=== PATIENT | female | born 1945 | race Caucasian/White ===

== ENCOUNTER 2017-08-20 09:45 | Emergency (ER) | payer BC, MEDICARE ==
[2017-08-20] MEDS ORDERED: ACETAMINOPHEN 325 MG TABLET PO ONE (10:18)
[2017-08-20] MEDS ORDERED: OXYCODONE HCL IR 5 MG TABLET PO ONE (10:24)
--- NOTE | 2017-08-20 10:36 | RADIOLOGY REPORT (SQ) ---
EXAM DESCRIPTION: SHOULDER LEFT 2 OR MORE VIEWS COMPLETED DATE/TIME: 08/20/2017 10:20 am REASON FOR STUDY: fall, pain COMPARISON: None. NUMBER OF VIEWS: Two views. TECHNIQUE: Internal rotation and Y view images acquired of the left shoulder. LIMITATIONS: None. FINDINGS: MINERALIZATION: Normal. BONES: There is a fracture of the humeral head involving the greater tuberosity. Cannot entirely exc lude oblique fracture through the humeral neck. JOINTS: No dislocation. VISUALIZED LUNGS AND RIBS: No pneumothorax. No rib fracture. SOFT TISSUES: No radiopaque foreign body. OTHER: No other significant finding. IMPRESSION: Humeral fracture as described. TECHNICAL DOCUMENTATION: JOB ID: [id number] [employer]- All Rights Reserved
--- NOTE | 2017-08-20 10:58 | RADIOLOGY REPORT (SQ) ---
EXAM DESCRIPTION: CT HEAD WITHOUT COMPLETED DATE/TIME: 08/20/2017 10:37 am REASON FOR STUDY: fall, on blood thinner, hit head COMPARISON: None. TECHNIQUE: Axial images acquired through the brain without intravenous contrast. Images reviewed wi th bone, brain and subdural windows. Images stored on PACS. All CT scanners at this facility use dose modulation, iterative reconstruction, and/or weight based d osing when appropriate to reduce radiation dose to as low as reasonably achievable (ALARA). [facility]: Dose Right [facility]: CareDose [facility]: Dose Right [facility]: Teradose 4D [facility]: Smart [employer] Media RADIATION DOSE: CT Rad equipment meets quality standard of care and radiation dose reduction techniq ues were employed. CTDIvol: 49.0 mGy. DLP: 881 mGy-cm. mGy. LIMITATIONS: None. FINDINGS: VENTRICLES: Prominent. CEREBRUM: No masses. No hemorrhage. No midline shift. Areas of low density in the white matter mos t likely due to chronic micro-vascular ischemic change. No evidence for acute infarction. CEREBELLUM: No masses. No hemorrhage. No alteration of density. No evidence for acute infarction. EXTRAAXIAL SPACES: Mild age-related involutional change. No fluid collections. No masses. ORBITS AND GLOBE: No intra- or extraconal masses. Normal contour of globe without masses. CALVARIUM: No fracture. PARANASAL SINUSES: No fluid or mucosal thickening. SOFT TISSUES: No mass or hematoma. OTHER: No other significant finding. IMPRESSION: MILD CHRONIC CHANGES OF ATROPHY AND MICROVASCULAR ISCHEMIA. NO ACUTE PROCESS. EVIDENCE OF ACUTE STROKE: NO. TECHNICAL DOCUMENTATION: JOB ID: [id number] Quality ID # [id number]: Final reports with documentation of one or more dose reduction techniques (e.g., Au tomated exposure control, adjustment of the mA and/or kV according to patient size, use of iterative reconstruction technique) 2010 [employer]- All Rights Reserved
--- NOTE | 2017-08-20 11:44 | RADIOLOGY REPORT (SQ) ---
EXAM DESCRIPTION: FEMUR LEFT COMPLETED DATE/TIME: 08/20/2017 11:19 am REASON FOR STUDY: fall, pain COMPARISON: None. NUMBER OF VIEWS: Two views. TECHNIQUE: Two radiographic images acquired of the left femur to include hip and knee in at least on e projection. LIMITATIONS: None. FINDINGS: MINERALIZATION: Normal. BONES: No acute fracture. No worrisome bone lesions. SOFT TISSUES: No obvious swelling or foreign body. OTHER: No other significant finding. IMPRESSION: NEGATIVE STUDY OF THE LEFT FEMUR. NO RADIOGRAPHIC EVIDENCE OF ACUTE INJURY. TECHNICAL DOCUMENTATION: JOB ID: [id number] [employer]- All Rights Reserved
--- NOTE | 2017-08-20 11:59 | RADIOLOGY REPORT (SQ) ---
EXAM DESCRIPTION: HIP LEFT AP/LATERAL COMPLETED DATE/TIME: 08/20/2017 11:19 am REASON FOR STUDY: fall, pain COMPARISON: None. NUMBER OF VIEWS: Two views. TECHNIQUE: AP pelvis and additional frog-leg view of the left hip. LIMITATIONS: None. FINDINGS: MINERALIZATION: Normal. LEFT HIP: No fracture or dislocation. No worrisome bone lesions. RIGHT HIP: No fracture or dislocation. No worrisome bone lesions. PUBIS AND ISCHIUM: No fracture. PELVIS: No fracture. SACRUM: No fracture or dislocation. No worrisome bone lesions. LOWER LUMBAR SPINE: Lower lumbar degenerative changes are present. SOFT TISSUES: No findings. OTHER: No other significant finding. IMPRESSION: Negative study of the left hip pelvis. Lower lumbar degenerative changes are present. TECHNICAL DOCUMENTATION: JOB ID: [id number] [employer]- All Rights Reserved
--- NOTE | 2017-08-20 12:06 | ER Document Report ---
ED Fall - General Chief Complaint: Fall Stated Complaint: FALL LEFT SHOULDER PAIN Time Seen by Provider: 08/20/17 09:59 Mode of Arrival: Medic Information source: Patient Notes: Patient is a 71-year-old female who presents to the ER today for left shoulder pain after she tripped while taking her dog to the [employer]. Patient states that she just got "caught up" in the dog's leash. She has rheumatoid arthritis and states that she always has pain but she is having increased pain since the fall to her left shoulder. Patient did hit her head and is on blood thinners. She complains of a small cut to the side of the left eye. She denies pain anywhere else, loss of consciousness, nausea or vomiting. Family in the room state that she is acting normally. She denies any numbness or tingling anywhere including to the left arm or hand. TRAVEL OUTSIDE OF THE [place] IN LAST 30 DAYS: No - Related data Allergies/Adverse Reactions: Sulfa (Sulfonamide Antibiotics) Allergy (Verified 08/20/17 10:10) does not recall IVP DYE Allergy (Mild, Uncoded 08/20/17 10:10) Hives Past Medical History - General Information source: Patient - Social History Smoking Status: Never Smoker Chew tobacco use (# tins/day): No Frequency of alcohol use: None Drug Abuse: None Family History: Reviewed & Not Pertinent Patient has suicidal ideation: No Patient has homicidal ideation: No - Past Medical History Cardiac Medical History: Reports: Hx Hypertension - medicated Denies: Hx Heart Attack Pulmonary Medical History: Denies: Hx Asthma Neurological Medical History: Denies: Hx Cerebrovascular Accident, Hx Seizures Renal/ Medical History: Denies: Hx Peritoneal Dialysis GI Medical History: Denies: Hx Hepatitis, Hx Hiatal Hernia, Hx Ulcer Infectious Medical History: Denies: Hx Hepatitis Past Surgical History: Denies: Hx Hysterectomy, Hx Mastectomy, Hx Open Heart Surgery, Hx Pacemaker Review of Systems - Review of Systems Constitutional: No symptoms reported EENT: No symptoms reported Cardiovascular: No symptoms reported Respiratory: No symptoms reported Gastrointestinal: No symptoms reported Genitourinary: No symptoms reported Female Genitourinary: No symptoms reported Musculoskeletal: See HPI Skin: See HPI Hematologic/Lymphatic: No symptoms reported Neurological/Psychological: No symptoms reported Physical Exam - Vital signs Vitals: Temp Pulse Resp BP Pulse Ox 97.3 F 60 16 145/79 H 100 08/20/17 09:49 08/20/17 09:49 08/20/17 09:49 08/20/17 09:49 08/20/17 09:49 - Notes Notes: PHYSICAL EXAMINATION: GENERAL: Patient wearing a makeshift sling to the left arm, otherwise well- appearing, in no acute distress. HEAD: Atraumatic, normocephalic. EYES: Pupils equal round and reactive to light, extraocular movements intact, sclera anicteric, conjunctiva are normal. NECK: Normal range of motion, supple without lymphadenopathy LUNGS: CTAB and equal. No wheezes rales or rhonchi. HEART: Regular rate and rhythm without murmurs ABDOMEN: Soft, no tenderness. No guarding, no rebound BACK: no vertebral tenderness, normal ROM GI/: no CVA tenderness EXTREMITIES: Tender to lateral left hip and femur, tender to left shoulder and left humerus proximally, no pitting edema. No cyanosis. NEUROLOGICAL: Cranial nerves grossly intact. Normal sensory/motor exams. PSYCH: Normal mood, normal affect. SKIN: Warm, Dry, normal turgor, small, less than 1 cm laceration lateral to the left eye, no bleeding, superficial, does not open Course - Re-evaluation Re-evalutation: 08/20/17 17:53 There is a fracture of the humeral head involving the greater tuberosity. No acute pathology found on CT of the head, hip x-ray or left femur x-ray. Patient feels better after pain medication here. Patient be placed in shoulder immobilizer and was given orthopedic follow-up although she states that she will call her rheumatoid arthritis doctor for orthopedic follow-up. - Vital Signs Vital signs: Temp Pulse Resp BP Pulse Ox 97.7 F 56 L 16 134/73 H 100 08/20/17 12:41 08/20/17 12:41 08/20/17 12:41 08/20/17 12:41 08/20/17 12:41 Discharge - Discharge Clinical Impression: Fall Qualifiers: Encounter type: initial encounter Qualified Code(s): W19.XXXA - Unspecified fall, initial encounter Fracture of humeral head Qualifiers: Encounter type: initial encounter Fracture type: closed Laterality: left Qualified Code(s): S42.292A - Other displaced fracture of upper end of left humerus, initial encounter for closed fracture Condition: Stable Disposition: HOME, SELF-CARE Additional Instructions: Return immediately for any new or worsening symptoms. Follow up with orthopedic doctor, call tomorrow to make followup appointment. Prescriptions: Oxycodone HCl/Acetaminophen [Percocet 5-325 mg Tablet] 1 tab PO Q4 PRN #15 tab PRN Reason: Referrals: LETICIA CASTLE MD [ACTIVE STAFF] - Follow up as needed
[2017-08-20 12:51] VITALS: BP 134/73
== END 2017-08-20 12:51 | disposition home or self-care (01) ==
LOC: ER 09:45
DX: S42.292A Other displaced fracture of upper end of left humerus, initial encounter for closed fracture (principal); W01.0XXA Fall on same level from slipping, tripping and stumbling without subsequent striking against object, initial encounter; I10 Essential (primary) hypertension; Z88.2 Allergy status to sulfonamides; Z91.041 Radiographic dye allergy status
CPT/HCPCS: 99284; 73552; 73502; 73030; 70450; L3650

== ENCOUNTER 2020-04-24 09:11 | Inpatient (IN) | payer MEDICARE, BC ==
[2020-04-24] MEDS ORDERED: ONDANSETRON HCL INJ/PF 4 MG/2 ML SDV IV ONE (09:31)
[2020-04-24 09:44] LABS: ABSOLUTE BASOPHILS # (AUTO) 0.1 10^3/uL (0.0-0.2); ABSOLUTE EOSINOPHILS # (AUTO) 0.3 10^3/uL (0.0-0.6); ABSOLUTE LYMPHOCYTES (AUTO) 1.2 10^3/uL (0.5-4.7); ABSOLUTE MONOCYTES (AUTO) 0.4 10^3/uL (0.1-1.4); ABSOLUTE NEUT (AUTO) 4.6 10^3/uL (1.7-8.2); BASOPHILS % (AUTO) 0.9 % (0-2); EOSINOPHILS % (AUTO) 4.4 % (0-6); HEMATOCRIT 40.7 % (36.0-47.0); HEMOGLOBIN 12.6 g/dL (12.0-15.5); LYMPHOCYTES % (AUTO) 18.6 % (13-45); MEAN CORPUSCULAR HEMOGLOBIN 28.6 pg (27.0-33.4); MEAN CORPUSCULAR VOLUME 92 fl (80-97); MONOCYTES % (AUTO) 6.5 % (3-13); PLATELET COUNT 359 10^3/uL (150-450); RED CELL DISTRIBUTION WIDTH 18.5 % (11.5-14.0); SEGMENTED NEUTROPHILS % (AUTO) 69.6 % (42-78); TOTAL CELLS COUNTED % (AUTO) 100 %; WHITE BLOOD COUNT 6.7 10^3/uL (4.0-10.5)
--- NOTE | 2020-04-24 09:53 | ER Document Report ---
Entered by MYLES CRISTOBAL SCRIBE 04/24/20926 Acting as scribe for:ELMER EVANS MD ED Respiratory Problem - General Chief Complaint: Breathing Difficulty Stated Complaint: DIFFICULTY BREATHING Time Seen by Provider: 04/24/20 09:17 Primary Care Provider: ELIZABETH MARC MD [NO LOCAL MD] - Follow up as needed Information source: Patient Notes: This 74 year old female patient presents to the emergency department today with complaints of difficulty breathing. She reports that [place] she had "3 instances" of shortness of breath that she attributed to "the thin atmosphere" but it became much worse last night. She reports that she tried two puffs of her symbicort which did nothing for her shortness of breath. She does not have an albuterol inhaler at home. She complaints of nausea which is chronic. She denies any cough or fevers. TRAVEL OUTSIDE OF THE [place] IN LAST 30 DAYS: No - Related Data Allergies/Adverse Reactions: Sulfa (Sulfonamide Antibiotics) Allergy (Verified 04/24/20 09:54) does not recall IVP DYE Allergy (Mild, Uncoded 04/24/20 09:54) Hives Past Medical History - General Information source: Patient - Social History Smoking Status: Never Smoker Cigarette use (# per day): No Frequency of alcohol use: None Drug Abuse: None Family History: Reviewed & Not Pertinent - Past Medical History Cardiac Medical History: Reports: Hx Atrial Fibrillation, Hx Hypertension - medicated Musculoskeletal Medical History: Reports Hx Arthritis - RA Past Surgical History: Reports: Hx Orthopedic Surgery - Shoulder Sx, Foot Sx Review of Systems - Review of Systems Constitutional: denies: Fever EENT: No symptoms reported Cardiovascular: No symptoms reported Respiratory: See HPI, Short of breath. denies: Cough Gastrointestinal: See HPI, Nausea - chronic Genitourinary: No symptoms reported Female Genitourinary: No symptoms reported Musculoskeletal: See HPI, Joint pain - chronic from RA Skin: No symptoms reported Hematologic/Lymphatic: No symptoms reported Neurological/Psychological: No symptoms reported -: Yes All other systems reviewed and negative Physical Exam - Vital signs Vitals: Resp BP Pulse Ox 25 H 152/87 H 100 04/24/20 09:15 04/24/20 09:15 04/24/20 09:15 - Notes Notes: Physical Exam: General: Alert, appears well. HEENT: Normocephalic. Atraumatic. PERRL. Extraocular movements intact. Oropharynx clear. Neck: Supple. Non-tender. Respiratory: Mild respiratory distress, initially on 15 L on nonrebreather saturating 100%, this was turned down to 2 L and she is still saturating 100%. Clear and equal breath sounds bilaterally. Cardiovascular: Regular rate and rhythm. Abdominal: Normal Inspection. Non-tender. No distension. Normal Bowel Sounds. Back: No gross abnormalities. Extremities: Moves all four extremities. Upper extremities: Ulnar deviation of fingers Lower extremities: Ulnar deviation of toes Neurological: Normal cognition. AAOx4. Normal speech. Psychological: Normal affect. Normal Mood. Skin: Warm. Dry. Normal color. Course - Re-evaluation Re-evalutation: 04/24/20 11:07 At this time the patient is on 2 L nasal cannula with pulse ox 98%. She is s miling states she feels much better. When asked her if the breathing treatment made her feel better she said she did not think so and asked her what did make her feel better she said just getting into the emergency room and the oxygen. She actually had been on a nonrebreather in route by EMS according to the nurse, and was left on nonrebreather at at least 15 L. This was turned down to 2 L and she was still saturating well so I asked the nurse to switch her to nasal cannula. She took her completely off of oxygen to get the blood gas which showed a PCO2 over 70 and a PO2 over 130 so she had been supersaturated on oxygen causing her to retain carbon dioxide. Hopefully this is remedying itself now that she is down to only 2 L nasal cannula. 04/24/20 15:34 A repeat blood gas on 2 L nasal cannula showed a PCO2 of 69 with a PO2 of 99. The patient was sleeping. The oxygen was turned off and her oxygen saturations dropped to 85%. She was then placed on 1 L nasal cannula and her oxygen saturation went up to 98%. - Vital Signs Vital signs: Temp Pulse Resp BP Pulse Ox 98.4 F 88 18 120/55 L 99 04/24/20 14:31 04/24/20 09:53 04/24/20 14:31 04/24/20 14:31 04/24/20 14:31 - Laboratory Result Diagrams: 04/24/20 09:30 04/24/20 11:20 Laboratory results interpreted by me: 04/24/20 04/24/20 04/24/20 09:30 09:46 11:20 MCHC 31.0 L RDW 18.5 H Carbonic Acid 2.19 H ABG pH 7.30 L ABG pCO2 72.9 H* ABG pO2 134.3 H ABG HCO3 35.1 H ABG Total CO2 37.3 H ABG O2 Saturation 98.3 H Potassium 3.5 L Carbon Dioxide 35 H AST 54 H Creatine Kinase 398 H Total Protein 5.5 L Albumin 3.0 L Urine Protein 04/24/20 04/24/20 12:15 14:05 MCHC RDW Carbonic Acid 2.08 H ABG pH 7.31 L ABG pCO2 69.0 H ABG pO2 ABG HCO3 33.6 H ABG Total CO2 35.7 H ABG O2 Saturation Potassium Carbon Dioxide AST Creatine Kinase Total Protein Albumin Urine Protein >=500 H - Diagnostic Test Radiology reviewed: Image reviewed, Reports reviewed - chest x-ray shows cardiomegaly, there are no comparisons. - EKG Interpretation by Me EKG shows normal: [place], Intervals, QRS Complexes, ST-T Waves Rate: Normal - 91 Rhythm: A.Fib [place]/QRS: Left axis deviation, IVCD When compared to previous EKG there are: Previous EKG unavailable Critical Care Note - Critical Care Note Total time excluding time spent on procedures (mins): 35 Comments: At least 35 minutes spent evaluating the patient and repeatedly going back to check on her as we give IV fluids, and try to sort out her hypoxia and hypercarbia issues. Time spent discussing the patient with the hospitalist service. Time spent reviewing past medical records and going through her large box full of medications. Discharge - Discharge Clinical Impression: Shortness of breath, CO2 retention, Chronic atrial fibrillation, Hypoxia, Dehydration Hypotension Qualifiers: Hypotension type: unspecified hypotension type Qualified Code(s): I95.9 - Hypotension, unspecified Proteinuria Qualifiers: Proteinuria type: unspecified Qualified Code(s): R80.9 - Proteinuria, unspecified Rheumatoid arthritis Qualifiers: Rheumatoid arthritis location: multiple sites Rheumatoid factor presence: unspecified presence Qualified Code(s): M06.9 - Rheumatoid arthritis, unspecified Condition: Good Disposition: ADMITTED INPATIENT Admitting Provider: Thierno (Hospitalist) Unit Admitted: Telemetry Referrals: ELIZABETH MARC MD [NO LOCAL MD] - Follow up as needed I personally performed the services described in the documentation, reviewed and edited the documentation which was dictated to the scribe in my presence, and it accurately records my words and actions.
--- NOTE | 2020-04-24 10:01 | RADIOLOGY REPORT (SQ) ---
EXAM DESCRIPTION: CHEST SINGLE VIEW IMAGES COMPLETED DATE/TIME: 04/24/2020 9:43 am REASON FOR STUDY: SOB COMPARISON: None. NUMBER OF VIEWS: One view. TECHNIQUE: Single frontal radiographic view of the chest acquired. LIMITATIONS: Overlapping breast tissue. FINDINGS: LUNGS AND PLEURA: Nonspecific elevation right diaphragm. No infiltrate. MEDIASTINUM AND HILAR STRUCTURES: Hiatal hernia. HEART AND VASCULAR STRUCTURES: Heart enlarged without failure. Normal vasculature. BONES: No acute findings. HARDWARE: Left shoulder arthroplasty. OTHER: No other significant finding. IMPRESSION: Cardiomegaly. No acute findings. TECHNICAL DOCUMENTATION: JOB ID: [id number] 2010 [employer]- All Rights Reserved Reading location - IP/workstation name: [email or web address]
[2020-04-24 10:17] LABS: ARTERIAL BLOOD BASE EXCESS 6.5 mmol/L; ARTERIAL BLOOD H2CO3 2.19 mmol/L (1.05-1.35); ARTERIAL BLOOD HCO3 35.1 mmol/L (20-24); ARTERIAL BLOOD O2 SATURATION 98.3 % (94-98); ARTERIAL BLOOD PO2 134.3 mmHg (80-100); ARTERIAL BLOOD TOTAL CO2 37.3 mmol/L (21-25)
[2020-04-24 10:19] LABS: ARTERIAL BLOOD FIO2 ROOM AIR
[2020-04-24 10:21] LABS: ARTERIAL BLOOD PCO2 72.9 mmHg (35-45)
[2020-04-24] MEDS ORDERED: IPRATROPIUM/ALBUTEROL 0.5-2.5 MG/3 ML AMPUL NEB ONE (10:21)
[2020-04-24 12:04] LABS: ALKALINE PHOSPHATASE 78 U/L (38-126); ASPARTATE AMINO TRANSFERASE 54 U/L (14-36); BILIRUBIN,TOTAL 0.3 mg/dL (0.2-1.3); BLOOD UREA NITROGEN 18 mg/dL (7-20); CALCIUM 9.2 mg/dL (8.4-10.2); CARBON DIOXIDE 35 mmol/L (22-30); CREATINE KINASE 398 U/L (30-135); GLUCOSE 106 mg/dL (75-110); POTASSIUM 3.5 mmol/L (3.6-5.0); TOTAL PROTEIN 5.5 g/dL (6.3-8.2)
[2020-04-24 12:11] LABS: ANION GAP 5 (5-19); CHLORIDE 98 mmol/L (98-107)
[2020-04-24] MEDS ORDERED: NORMAL SALINE 1000 ML 1,000 ML IV ONE ×2 (12:30→15:22)
[2020-04-24 12:54] LABS: APPEARANCE,URINE SLIGHTLY-CLOUDY; BILIRUBIN,URINE NEGATIVE (NEGATIVE); COLOR,URINE YELLOW; GLUCOSE, URINE NEGATIVE (NEGATIVE); KETONES,URINE NEGATIVE (NEGATIVE); LEUKOCYTE ESTERASE,URINE NEGATIVE (NEGATIVE); NITRITE,URINE NEGATIVE (NEGATIVE); PROTEIN,URINE >=500 mg/dL (NEGATIVE); URINE SPECIFIC GRAVITY 1.024; UROBILINOGEN,URINE NEGATIVE mg/dL (<2.0)
[2020-04-24 14:55] LABS: ARTERIAL BLOOD BASE EXCESS 4.9 mmol/L; ARTERIAL BLOOD H2CO3 2.08 mmol/L (1.05-1.35); ARTERIAL BLOOD HCO3 33.6 mmol/L (20-24); ARTERIAL BLOOD O2 SATURATION 96.7 % (94-98); ARTERIAL BLOOD PH 7.31 (7.35-7.45); ARTERIAL BLOOD PO2 99.6 mmHg (80-100); ARTERIAL BLOOD TOTAL CO2 35.7 mmol/L (21-25)
[2020-04-24 14:56] LABS: ARTERIAL BLOOD FIO2 2L
--- NOTE | 2020-04-24 15:04 | EKG REPORT ---
SEVERITY:- ABNORMAL ECG - SINUS RHYTHM LVH WITH IVCD, LAD AND SECONDARY REPOL ABNRM PROBABLE INFERIOR INFARCT, AGE INDETERMINATE PAC : Confirmed by: Chad Ramirez MD 24-Apr-2020 15:03:55
[2020-04-24] MEDS ORDERED: ONDANSETRON HCL INJ/PF 4 MG/2 ML SDV IV PRN (17:14)
[2020-04-24] MEDS ORDERED: LEVALBUTEROL HCL NEB 1.25 MG/3 ML AMPUL NEB PRN (17:14)
[2020-04-24] MEDS ORDERED: NORMAL SALINE 1000 ML 1,000 ML IV PRN (17:14)
[2020-04-24] MEDS ORDERED: MAG HYDROX/AL HYDROX/SIMETH SUSP 30 ML UDCUP PO PRN (17:14)
--- NOTE | 2020-04-24 17:45 | PDOC H&P ---
History of Present Illness Admission Date/PCP: 04/24/20 15:38 SIMONE MEDELLIN DO Patient complains of: palpitations and dyspnea History of Present Illness: ROXANA GOEL is a 74 year old female with a past medical history significant for atrial fibrillation status post cardiac ablation (per patient, found to be in normal sinus rhythm at her cardiology visit just 2 weeks ago), remote esophageal cancer with esophagectomy, pulmonary embolus, hypertension, hyperlipidemia, and rheumatoid arthritis who presented to the emergency department today with a sudden onset of dyspnea. EMS responded and reported that she was dusky in appearance with profound hypoxia (uncertain of initial SPO2); placed on nonrebreather and transported to the emergency department. In the ED, patient was found to be tachypneic with SPO2 100% on nonrebreather; supplemental oxygen was slowly titrated off and she was able to maintain oxygen saturations in the high 80s to low 90s without Respiratory support. Further evaluation found an unremarkable CBC, ABG significant for respiratory acidosis with hypercapnia, chemistry with mild hypokalemia, elevated bicarb, and an inde terminate troponin of 0.048. Urine suggested dehydration and also noted to have proteinuria. EKG with significant for cardiomegaly but without acute findings. EKG shows atrial fibrillation. She was provided IV fluid boluses due to hypotension nebulizer treatment x1 due to continued report of dyspnea, and referred to the hospitalist service for admission and management of the above-stated findings. Past Medical History Cardiac Medical History: Reports: Atrial Fibrillation, Hyperlipidema, Hypertension Denies: Congestive Heart Failure, Coronary Artery Disease, Myocardial Infarction Pulmonary Medical History: Reports: Chronic Obstructive Pulmonary Disease (COPD) - Denies formal diagnosis, however, prescribed Breo and Symbicort Denies: Asthma EENT Medical History: Reports: None Neurological Medical History: Denies: Seizures Endocrine Medical History: Reports: None Renal/ Medical History: Reports: None Malignancy Medical History: Reports: Other - remote esophageal cancer GI Medical History: Reports: Gastroesophageal Reflux Disease Denies: Hepatitis, Hiatal Hernia Musculoskeltal Medical History: Reports: Arthritis - RA Psychiatric Medical History: Reports: Depression Traumatic Medical History: Reports: None Hematology: Denies: Anemia, Sickle Cell Disease Infectious Medical History: Reports: None Past Surgical History Past Surgical History: Reports: Orthopedic Surgery - Shoulder Sx, Foot Sx, Other - esophagectomy Denies: Amputation, Hysterectomy, Mastectomy, Pacemaker Social History Information Source: Patient Lives with: Family Smoking Status: Never Smoker Electronic Cigarette use?: No Frequency of Alcohol Use: None Hx Recreational Drug Use: No Drugs: None Hx Prescription Drug Abuse: No - Advance Directive Resuscitation Status: Full Code Family History Family History: Reviewed & Not Pertinent, DM, Hyperlipidemia, Hypertension, Thyroid Disfunction Parental Family History Reviewed: Yes Children Family History Reviewed: Yes Sibling(s) Family History Reviewed.: Yes Medication/Allergy Home Medications: Celecoxib [Celebrex] 400 mg PO DAILY 12/15/13 Cetirizine HCl [Zyrtec] 10 mg PO DAILY 12/15/13 Cholecalciferol (Vitamin D3) [Vitamin D3 5000 unit Capsule] 50,000 unit PO [id number] 12/15/13 Esomeprazole Magnesium [Nexium] 40 mg PO DAILY 12/15/13 Hydroxychloroquine Sulfate [Plaquenil 200 mg Tablet] 200 mg PO DAILY 12/15/13 Potassium Chloride [Klor-Con] 20 meq PO DAILY 12/15/13 Prednisone 5 mg PO BID 12/15/13 Sucralfate [Carafate 1 gm Tablet] 1 gm PO ACHS 12/15/13 Budesonide/Formoterol Fumarate [Symbicort HFA 160-4.5 mcg Inhaler 6 gm] 1 puff IN Q12 04/24/20 Colestipol HCl [Colestid 1 gm Tablet] 1 gm PO DAILY 04/24/20 Duloxetine HCl [Cymbalta 30 mg Capsule.dr] 30 mg PO DAILY 04/24/20 Folic Acid [Folvite 1 mg Tablet] 1 mg PO BID 04/24/20 Magnesium Oxide [Mag-Ox 400 mg Tablet] 400 mg PO QHS 04/24/20 Ondansetron [Zofran Odt 4 mg Tablet] 4 mg PO Q6HP PRN 04/24/20 Vits96/Iron Fum/Folic [ Tablet] 1 tab PO DAILY 04/24/20 Rivaroxaban [Xarelto] 20 mg PO DAILY 04/24/20 Sotalol HCl [Betapace 80 mg Tablet] 80 mg PO BID 04/24/20 Telmisartan/Hydrochlorothiazid [Telmisartan-Hctz 80-12.5 mg Tb] 1 tab PO DAILY 04/24/20 Venlafaxine HCl ER [Effexor Xr 75 mg Cap.sr] 75 mg PO DAILY 04/24/20 Allergies/Adverse Reactions: Sulfa (Sulfonamide Antibiotics) Allergy (Verified 04/24/20 09:54) does not recall IVP DYE Allergy (Mild, Uncoded 04/24/20 09:54) Hives Review of Systems Constitutional: ABSENT: chills, fever(s), headache(s), weight gain, weight loss Eyes: ABSENT: visual disturbances Ears: ABSENT: hearing changes Cardiovascular: PRESENT: dyspnea on exertion, palpitations. ABSENT: chest pain, edema, orthropnea Respiratory: ABSENT: cough, hemoptysis Gastrointestinal: ABSENT: abdominal pain, constipation, diarrhea, hematemesis, hematochezia, nausea, vomiting Genitourinary: ABSENT: dysuria, hematuria Musculoskeletal: ABSENT: joint swelling Integumentary: ABSENT: rash, wounds Neurological: ABSENT: abnormal gait, abnormal speech, confusion, dizziness, focal weakness, syncope Psychiatric: ABSENT: anxiety, depression, homidical ideation, suicidal ideation Endocrine: ABSENT: cold intolerance, heat intolerance, polydipsia, polyuria Hematologic/Lymphatic: ABSENT: easy bleeding, easy bruising Physical Exam Vital Signs: Temp Pulse Resp BP Pulse Ox 98.4 F 88 20 110/48 L 97 04/24/20 16:01 04/24/20 09:53 04/24/20 16:30 04/24/20 16:30 04/24/20 15:30 Intake & Output 04/23/20 04/24/20 04/25/20 06:59 06:59 06:59 Intake Total 1999 Balance 1999 Weight 76.6 kg General appearance: PRESENT: no acute distress, cooperative, well-developed, well-nourished - overweight Head exam: PRESENT: atraumatic, normocephalic Eye exam: PRESENT: conjunctiva pink, EOMI, PERRLA. ABSENT: scleral icterus Mouth exam: PRESENT: moist, tongue midline Respiratory exam: PRESENT: clear to auscultation colleen, symmetrical, unlabored, other - room air. ABSENT: rales, rhonchi, wheezes Cardiovascular exam: PRESENT: irregular rhythm, +S1, +S2. ABSENT: diastolic murmur, rubs, systolic murmur Pulses: PRESENT: normal dorsalis pedis pul Vascular exam: PRESENT: normal capillary refill GI/Abdominal exam: PRESENT: normal bowel sounds, soft. ABSENT: distended, guarding, mass, organolmegaly, rebound, tenderness Rectal exam: PRESENT: deferred Extremities exam: PRESENT: full ROM. ABSENT: calf tenderness, clubbing, pedal edema Neurological exam: PRESENT: alert, awake, oriented to person, oriented to place, oriented to time, oriented to situation, CN II-XII grossly intact. ABSENT: motor sensory deficit Psychiatric exam: PRESENT: appropriate affect, normal mood. ABSENT: homicidal ideation, suicidal ideation Skin exam: PRESENT: dry, intact, warm. ABSENT: cyanosis, rash Results Laboratory Results: 04/24/20 09:30 04/24/20 11:20 04/24/20 04/24/20 04/24/20 09:30 09:30 09:46 WBC 6.7 RBC 4.40 Hgb 12.6 Hct 40.7 MCV 92 MCH 28.6 MCHC 31.0 L RDW 18.5 H Plt Count 359 Seg Neutrophils % 69.6 Carbonic Acid 2.19 H HCO3/H2CO3 Ratio 16:1 ABG pH 7.30 L ABG pCO2 72.9 H* ABG pO2 134.3 H ABG HCO3 35.1 H ABG O2 Saturation 98.3 H ABG Base Excess 6.5 FiO2 ROOM AIR Sodium Cancelled Potassium Cancelled Chloride Cancelled Carbon Dioxide Cancelled Anion Gap Cancelled BUN Cancelled Creatinine Cancelled Est GFR ( Amer) Cancelled Est GFR (Non-Af Amer) Cancelled Glucose Cancelled Calcium Cancelled Total Bilirubin Cancelled AST Cancelled Alkaline Phosphatase Cancelled Total Protein Cancelled Albumin Cancelled Urine Color Urine Appearance Urine pH Ur Specific [place] Urine Protein Urine Glucose (UA) Urine Ketones Urine Blood Urine Nitrite Ur Leukocyte Esterase Urine WBC (Auto) Urine RBC (Auto) 04/24/20 04/24/20 04/24/20 11:20 12:15 13:20 WBC RBC Hgb Hct MCV MCH MCHC RDW Plt Count Seg Neutrophils % Carbonic Acid Cancelled HCO3/H2CO3 Ratio Cancelled ABG pH Cancelled ABG pCO2 Cancelled ABG pO2 Cancelled ABG HCO3 Cancelled ABG O2 Saturation Cancelled ABG Base Excess Cancelled FiO2 Cancelled Sodium 138.1 Potassium 3.5 L Chloride 98 Carbon Dioxide 35 H Anion Gap 5 BUN 18 Creatinine 0.92 Est GFR ( Amer) > 60 Est GFR (Non-Af Amer) Glucose 106 Calcium 9.2 Total Bilirubin 0.3 AST 54 H Alkaline Phosphatase 78 Total Protein 5.5 L Albumin 3.0 L Urine Color YELLOW Urine Appearance SLIGHTLY-CLOUDY Urine pH 6.0 Ur Specific [place] 1.024 Urine Protein >=500 H Urine Glucose (UA) NEGATIVE Urine Ketones NEGATIVE Urine Blood NEGATIVE Urine Nitrite NEGATIVE Ur Leukocyte Esterase NEGATIVE Urine WBC (Auto) 16 Urine RBC (Auto) 7 04/24/20 14:05 WBC RBC Hgb Hct MCV MCH MCHC RDW Plt Count Seg Neutrophils % Carbonic Acid 2.08 H HCO3/H2CO3 Ratio 16:1 ABG pH 7.31 L ABG pCO2 69.0 H ABG pO2 99.6 ABG HCO3 33.6 H ABG O2 Saturation 96.7 ABG Base Excess 4.9 FiO2 2L Sodium Potassium Chloride Carbon Dioxide Anion Gap BUN Creatinine Est GFR ( Amer) Est GFR (Non-Af Amer) Glucose Calcium Total Bilirubin AST Alkaline Phosphatase Total Protein Albumin Urine Color Urine Appearance Urine pH Ur Specific [place] Urine Protein Urine Glucose (UA) Urine Ketones Urine Blood Urine Nitrite Ur Leukocyte Esterase Urine WBC (Auto) Urine RBC (Auto) 04/24/20 04/24/20 04/24/20 09:30 09:30 11:20 Creatine Kinase Cancelled Troponin I Cancelled 0.048 04/24/20 11:20 Creatine Kinase 398 H Troponin I Impressions: Chest X-Ray 04/24/20 09:27 IMPRESSION: Cardiomegaly. No acute findings. Assessment and Plan - Diagnosis (1) Atrial fibrillation Qualifiers: Atrial fibrillation type: persistent (not longstanding) Qualified Code(s): I48.19 - Other persistent atrial fibrillation; I48.1 - Persistent atrial fibrillation Is this a current diagnosis for this admission?: Yes Plan: Persistent atrial fibrillation. Patient is admitted to the medical floor on continuous cardiac telemetry. Continue Xarelto. Will increase Sotalol to 120 mg BID. Low threshold for cardiology consultation. EKG in the morning to check rhythm and QTc interval. (2) Acute respiratory failure with hypoxia and hypercapnia Is this a current diagnosis for this admission?: Yes Plan: Improved. Symptoms of dyspnea coincided with report of palpitations; I question if the patient is having episodes of a. fib RVR. ABG showed respiratory acidosis with hypercapnia. She denies formal diagnosis of COPD, however, previously prescribed Breo and Cymbalta. Chest x-ray is benign. She will be monitored on continuous cardiac telemetry. Resume Breo and Spiriva. As needed nebulizer treatments. Supplemental oxygen as needed to meet saturations greater than 89%. Continue home dose prednisone 5 mg twice daily; consider escalation if the patient develops wheezing or clear exacerbation of COPD. (3) Rheumatoid arthritis Qualifiers: Rheumatoid arthritis location: multiple sites Rheumatoid factor presence: unspecified presence Qualified Code(s): M06.9 - Rheumatoid arthritis, unspecified Is this a current diagnosis for this admission?: Yes Plan: Continue home dose Plaquenil, prednisone, Cymbalta, Celebrex. (4) GERD (gastroesophageal reflux disease) Is this a current diagnosis for this admission?: Yes Plan: Continue PPI and Carafate (5) Hypertension Is this a current diagnosis for this admission?: Yes Plan: Sotalol increased as above. Continue home dose telmisartan/hydrochlorothiazide. Cardiac diet. - Time Time Spent with patient: 35 or more minutes Medications reviewed and adjusted accordingly: Yes Anticipated Discharge Disposition: Home with Home Health Anticipated Discharge Timeframe: within 48 hours
[2020-04-24] MEDS: PREDNISONE 5 MG TABLET PO SCH (19:21)
[2020-04-24] MEDS: FOLIC ACID 1 MG TABLET PO SCH (19:21)
[2020-04-24] MEDS: SOTALOL HCL 80 MG TABLET PO SCH (21:31)
[2020-04-24] MEDS: MAGNESIUM OXIDE 400 MG TABLET PO SCH (21:31)
[2020-04-24] MEDS: RIVAROXABAN 10 MG TABLET PO SCH (21:31)
[2020-04-24] MEDS: SUCRALFATE 1 GM TABLET PO SCH (21:31)
[2020-04-24] MEDS ORDERED: (PENDING PHARMACY ID) (Budesonide/Formoterol Fumarate 1 PUFF) IN SCH (22:00)
[2020-04-24] MEDS: ACETAMINOPHEN 325 MG TABLET PO PRN (23:41)
[2020-04-25 06:07] LABS: HEMATOCRIT 32.7 % (36.0-47.0); HEMOGLOBIN 10.7 g/dL (12.0-15.5); MEAN CORPUSCULAR HEMOGLOBIN 29.5 pg (27.0-33.4); MEAN CORPUSCULAR HGB CONC 32.6 g/dL (32.0-36.0); MEAN CORPUSCULAR VOLUME 90 fl (80-97); PLATELET COUNT 256 10^3/uL (150-450); RED BLOOD COUNT 3.62 10^6/uL (3.72-5.28); RED CELL DISTRIBUTION WIDTH 18.7 % (11.5-14.0); WHITE BLOOD COUNT 8.9 10^3/uL (4.0-10.5)
[2020-04-25 06:23] LABS: BLOOD UREA NITROGEN 18 mg/dL (7-20); CALCIUM 8.8 mg/dL (8.4-10.2); CARBON DIOXIDE 30 mmol/L (22-30); CHLORIDE 103 mmol/L (98-107); GLUCOSE 96 mg/dL (75-110); PHOSPHORUS 3.5 mg/dL (2.5-4.5)
[2020-04-25 06:25] LABS: ANION GAP 5 (5-19)
[2020-04-25] MEDS: FOLIC ACID 1 MG TABLET PO SCH ×2 (09:40→17:40)
[2020-04-25] MEDS: POTASSIUM CHLORIDE 20 MEQ PACKET PO SCH (09:40)
[2020-04-25] MEDS: FLUTICASONE/VILANTEROL 200-25 MCG/DOSE IH SCH (09:41)
[2020-04-25] MEDS: LOSARTAN POTASSIUM 50 MG TABLET PO SCH (09:41)
[2020-04-25] MEDS: SUCRALFATE 1 GM TABLET PO SCH ×4 (09:41→21:19)
[2020-04-25] MEDS: CETIRIZINE 10 MG TABLET PO SCH (09:41)
[2020-04-25] MEDS: PRENATAL VITAMIN W DHA CAPSULE PO SCH (09:41)
[2020-04-25] MEDS: PANTOPRAZOLE SODIUM 40 MG TABLET.DR PO SCH (09:41)
[2020-04-25] MEDS: HYDROXYCHLOROQUINE SULFATE 200 MG TABLET PO SCH (09:42)
[2020-04-25] MEDS: SOTALOL HCL 80 MG TABLET PO SCH ×2 (09:42→21:18)
[2020-04-25] MEDS: CELECOXIB 200 MG CAPSULE PO SCH (09:42)
[2020-04-25] MEDS: COLESTIPOL HCL 1 GM TABLET PO SCH (09:43)
[2020-04-25] MEDS: DOCUSATE SODIUM 100 MG CAPSULE PO SCH ×2 (09:43→17:44)
[2020-04-25] MEDS: HYDROCHLOROTHIAZIDE 12.5 MG TABLET PO SCH (09:43)
[2020-04-25] MEDS: PREDNISONE 5 MG TABLET PO SCH ×2 (09:46→17:40)
[2020-04-25] MEDS ORDERED: DULOXETINE HCL 30 MG CAPSULE.DR PO SCH (10:00)
[2020-04-25] MEDS ORDERED: (PENDING PHARMACY ID) (Telmisartan/Hydrochlorothiazid [Telmisartan-Hctz 80-12.5 Mg Tb] 1 T PO SCH (10:00)
[2020-04-25] MEDS ORDERED: (PENDING PHARMACY ID) (Prenatal Vits96/Iron Fum/Folic [Prenatal Tablet] 1 TAB) PO SCH (10:00)
[2020-04-25] MEDS ORDERED: CELECOXIB 400 MG PO SCH (10:00)
--- NOTE | 2020-04-25 14:43 | PDOC PROGRESS REPORT ---
Subjective Progress Note for:: 04/25/20 Subjective:: Patient was seen on afternoon rounds. She is found resting in bed, comfortably, on room air. Continues to have intermittent palpitations but no further episodes of dyspnea, generalized weakness, or anxiety. Hopeful to discharge to home soon. She further denies fever, chest pain, orthopnea, cough, abdominal pain, nausea vomiting and diarrhea. No other questions or concerns at this time. No concerns per nursing. Reason For Visit: A. FIB, ACUTE RESPIRATORY FAILURE WITH HYPOXIA AND Physical Exam Vital Signs: Temp Pulse Resp BP Pulse Ox 98.0 F 72 12 146/84 H 92 04/25/20 07:54 04/25/20 13:32 04/25/20 13:32 04/25/20 07:54 04/25/20 13:32 Intake & Output 04/24/20 04/25/20 04/26/20 06:59 06:59 06:59 Intake Total 2000 Output Total 400 Balance 1600 Weight 76.6 kg General appearance: PRESENT: no acute distress, cooperative, well-developed, well-nourished, other - Overweight Head exam: PRESENT: atraumatic, normocephalic Eye exam: PRESENT: conjunctiva pink, EOMI, PERRLA. ABSENT: scleral icterus Mouth exam: PRESENT: moist, tongue midline Respiratory exam: PRESENT: clear to auscultation colleen, symmetrical, unlabored. ABSENT: rales, rhonchi, wheezes Cardiovascular exam: PRESENT: RRR, other - Currently NSR; intermittent PAF on telemetry. ABSENT: diastolic murmur, rubs, systolic murmur Pulses: PRESENT: normal dorsalis pedis pul Vascular exam: PRESENT: normal capillary refill Extremities exam: PRESENT: full ROM. ABSENT: calf tenderness, clubbing, pedal edema Neurological exam: PRESENT: alert, awake, oriented to person, oriented to place, oriented to time, oriented to situation, CN II-XII grossly intact. ABSENT: motor sensory deficit Psychiatric exam: PRESENT: appropriate affect, normal mood. ABSENT: homicidal ideation, suicidal ideation Skin exam: PRESENT: dry, intact, warm. ABSENT: cyanosis, rash Results Laboratory Results: 04/25/20 05:20 04/25/20 05:20 04/24/20 04/25/20 04/25/20 14:05 05:20 05:20 WBC 8.9 RBC 3.62 L Hgb 10.7 L Hct 32.7 L MCV 90 MCH 29.5 MCHC 32.6 RDW 18.7 H Plt Count 256 Carbonic Acid 2.08 H HCO3/H2CO3 Ratio 16:1 ABG pH 7.31 L ABG pCO2 69.0 H ABG pO2 99.6 ABG HCO3 33.6 H ABG O2 Saturation 96.7 ABG Base Excess 4.9 FiO2 2L Sodium 137.4 Potassium 4.0 Chloride 103 Carbon Dioxide 30 Anion Gap 5 BUN 18 Creatinine 0.78 Est GFR ( Amer) > 60 Glucose 96 Calcium 8.8 Phosphorus 3.5 Magnesium 2.0 TSH 04/25/20 05:20 WBC RBC Hgb Hct MCV MCH MCHC RDW Plt Count Carbonic Acid HCO3/H2CO3 Ratio ABG pH ABG pCO2 ABG pO2 ABG HCO3 ABG O2 Saturation ABG Base Excess FiO2 Sodium Potassium Chloride Carbon Dioxide Anion Gap BUN Creatinine Est GFR ( Amer) Glucose Calcium Phosphorus Magnesium TSH 1.99 04/24/20 04/24/20 04/24/20 09:30 09:30 11:20 Creatine Kinase Cancelled Troponin I Cancelled 0.048 04/24/20 11:20 Creatine Kinase 398 H Troponin I Impressions: Chest X-Ray 04/24/20 09:27 IMPRESSION: Cardiomegaly. No acute findings. Assessment and Plan - Diagnosis (1) Atrial fibrillation Qualifiers: Atrial fibrillation type: persistent (not longstanding) Qualified Code(s): I48.19 - Other persistent atrial fibrillation; I48.1 - Persistent atrial fibrillation Is this a current diagnosis for this admission?: Yes Plan: Persistent atrial fibrillation. Patient is admitted to the medical floor on continuous cardiac telemetry. Continue Xarelto. Continue increased Sotalol at 120 mg BID. As patient is continuing to have PAF with palpitations, will consult cardiology (2) Acute respiratory failure with hypoxia and hypercapnia Is this a current diagnosis for this admission?: Yes Plan: Resolved. Symptoms of dyspnea coincided with report of palpitations; I question if the patient is having episodes of a. fib RVR. ABG showed respiratory acidosis with hypercapnia. She denies formal diagnosis of COPD, however, previously prescribed Breo and Cymbalta. Chest x-ray is benign. She will be monitored on continuous cardiac telemetry. Resume Breo and Spiriva. As needed nebulizer treatments. Supplemental oxygen as needed to meet saturations greater than 89%. Continue home dose prednisone 5 mg twice daily; consider escalation if the patient develops wheezing or clear exacerbation of COPD. (3) Rheumatoid arthritis Qualifiers: Rheumatoid arthritis location: multiple sites Rheumatoid factor presence: unspecified presence Qualified Code(s): M06.9 - Rheumatoid arthritis, unspecified Is this a current diagnosis for this admission?: Yes Plan: Continue home dose Plaquenil, prednisone, Cymbalta, Celebrex. (4) GERD (gastroesophageal reflux disease) Is this a current diagnosis for this admission?: Yes Plan: Continue PPI and Carafate (5) Hypertension Is this a current diagnosis for this admission?: Yes Plan: Sotalol increased as above. Continue home dose telmisartan/hydrochlorothiazide. Cardiac diet. - Time Time Spent with patient: 25-34 minutes Medications reviewed and adjusted accordingly: Yes Anticipated Discharge Disposition: Home with Home Health Anticipated Discharge Timeframe: within 24 hours - pending cardiology evaluation/recommendations
--- NOTE | 2020-04-25 15:30 | EKG REPORT ---
SEVERITY:- ABNORMAL ECG - SINUS RHYTHM ATRIAL PREMATURE COMPLEX FIRST DEGREE AV BLOCK LEFT ANTERIOR FASCICULAR BLOCK PROBABLE LVH WITH SECONDARY REPOL ABNRM BORDERLINE PROLONGED QT INTERVAL : Confirmed by: Chad Ramirez MD 25-Apr-2020 15:29:27
--- NOTE | 2020-04-25 16:50 | PDOC CONSULTATION ---
Consultation Consult Date: 04/25/20 Provider Consulted: AYESHA CALLEJAS Consult reason:: Atrial fibrillation History of Present Illness Admission Date/PCP: 04/24/20 15:38 SIMONE MEDELLIN DO Patient complains of: Palpitations History of Present Illness: ROXANA GOEL is a 74 year old female With the following active problems 1. Paroxysmal atrial fibrillation 2. Carcinoma esophagus 3. Systemic anticoagulation-rivaroxaban 4. Rheumatoid arthritis 74-year-old lady with history of atrial fibrillation status post catheter ablation 4 to [address] Coreas. Patient has been maintained on rhythm control strategy with sotalol 80 mg twice daily together with systemic anticoagulation. She also reports esophageal cancer which was removed followed by significant bleeding and required surgery as an emergency. Patient reports symptoms suggestive of paroxysmal atrial fibrillation with palpitations. [place] and became quite tachypneic. Since admission to the hospital she is done much better. Telemetry has shown episodes of sinus rhythm together with episodes of atrial fibrillation. Patient appears to be symptomatic when she goes into atrial fibrillation. At the time of my evaluation the sotalol dose has been increased to 120 mg twice daily. Past Medical History Cardiac Medical History: Reports: Atrial Fibrillation, Hyperlipidema, Hypertension Denies: Congestive Heart Failure, Coronary Artery Disease, Myocardial Infarction Pulmonary Medical History: Reports: Chronic Obstructive Pulmonary Disease (COPD) - Denies formal diagnosis, however, prescribed Breo and Symbicort Denies: Asthma EENT Medical History: Reports: None Neurological Medical History: Denies: Seizures Endocrine Medical History: Reports: None Renal/ Medical History: Reports: None Malignancy Medical History: Reports: Other - remote esophageal cancer GI Medical History: Reports: Gastroesophageal Reflux Disease Denies: Hepatitis, Hiatal Hernia Musculoskeltal Medical History: Reports: Arthritis - RA Psychiatric Medical History: Reports: Depression Traumatic Medical History: Reports: None Hematology: Denies: Anemia, Sickle Cell Disease Infectious Medical History: Reports: None Past Surgical History Past Surgical History: Reports: Orthopedic Surgery - Shoulder Sx, Foot Sx, Other - esophagectomy Denies: Amputation, Hysterectomy, Mastectomy, Pacemaker Social History Lives with: Family Smoking Status: Never Smoker Electronic Cigarette use?: No Frequency of Alcohol Use: None Hx Recreational Drug Use: No Drugs: None Hx Prescription Drug Abuse: No - Advance Directive Resuscitation Status: Full Code Family History Family History: Reviewed & Not Pertinent, DM, Hyperlipidemia, Hypertension, Thyroid Disfunction Parental Family History Reviewed: Yes - No familial illnesses. Children Family History Reviewed: NA Sibling(s) Family History Reviewed.: NA Medication/Allergy Home Medications: Celecoxib [Celebrex] 400 mg PO DAILY 12/15/13 Cetirizine HCl [Zyrtec] 10 mg PO DAILY 12/15/13 Esomeprazole Magnesium [Nexium] 40 mg PO DAILY 12/15/13 Hydroxychloroquine Sulfate [Plaquenil 200 mg Tablet] 200 mg PO DAILY 12/15/13 Potassium Chloride [Klor-Con] 20 meq PO DAILY 12/15/13 Prednisone 5 mg PO BID 12/15/13 Sucralfate [Carafate 1 gm Tablet] 1 gm PO ACHS 12/15/13 Budesonide/Formoterol Fumarate [Symbicort HFA 160-4.5 mcg Inhaler 6 gm] 1 puff IN Q12 04/24/20 Colestipol HCl [Colestid 1 gm Tablet] 1 gm PO DAILY 04/24/20 Duloxetine HCl [Cymbalta 30 mg Capsule.dr] 30 mg PO DAILY 04/24/20 Ergocalciferol (Vitamin D2) [Drisdol 50,000 Unit (1.25MG) Capsule] 1 cap PO [id number] 04/24/20 Folic Acid [Folvite 1 mg Tablet] 1 mg PO BID 04/24/20 Magnesium Oxide [Mag-Ox 400 mg Tablet] 400 mg PO QHS 04/24/20 Ondansetron [Zofran Odt 4 mg Tablet] 4 mg PO Q6HP PRN 04/24/20 Vits96/Iron Fum/Folic [ Tablet] 1 tab PO DAILY 04/24/20 Rivaroxaban [Xarelto] 20 mg PO DAILY 04/24/20 Sotalol HCl [Betapace 80 mg Tablet] 80 mg PO BID 04/24/20 Telmisartan/Hydrochlorothiazid [Telmisartan-Hctz 80-12.5 mg Tb] 1 tab PO DAILY 04/24/20 Venlafaxine HCl ER [Effexor Xr 75 mg Cap.sr] 75 mg PO DAILY 04/24/20 Allergies/Adverse Reactions: Sulfa (Sulfonamide Antibiotics) Allergy (Verified 04/24/20 09:54) does not recall IVP DYE Allergy (Mild, Uncoded 04/24/20 09:54) Hives Review of Systems Constitutional: PRESENT: as per HPI Eyes: PRESENT: as per HPI Cardiovascular: PRESENT: palpitations Respiratory: PRESENT: as per HPI Gastrointestinal: ABSENT: as per HPI, abdominal pain, bloating, coffee ground emesis, constipation, diarrhea, dysphagia, heartburn, hematemesis, hematochezia, melena, nausea, vomiting, other Genitourinary: ABSENT: as per HPI, difficulty urinating, dysuria, hematuria, nocturia, other Integumentary: ABSENT: as per HPI, diaphoresis, erythema, lesions, pruritus, rash, wounds, other Neurological: ABSENT: as per HPI, abnormal gait, abnormal movements, abnormal speech, confusion, convulsions, dizziness, focal weakness, frequent falls, lack of coordination, memory loss, numbness, paresthesias, restless legs, syncope, tingling, tremor(s), vertigo, weakness, other Psychiatric: PRESENT: anxiety. ABSENT: depression, homidical ideation, suicidal ideation Physical Exam Vital Signs: Temp Pulse Resp BP Pulse Ox 97.7 F 67 19 144/96 H 94 04/25/20 14:49 04/25/20 14:49 04/25/20 14:49 04/25/20 14:49 04/25/20 14:49 Intake & Output 04/24/20 04/25/20 04/26/20 06:59 06:59 06:59 Intake Total 2000 240 Output Total 400 Balance 1600 240 Weight 76.6 kg General appearance: PRESENT: no acute distress, cooperative, well-developed, well-nourished Head exam: PRESENT: atraumatic, normocephalic Eye exam: PRESENT: conjunctiva pink, EOMI Mouth exam: PRESENT: moist Respiratory exam: PRESENT: symmetrical, unlabored Cardiovascular exam: PRESENT: RRR, +S1, +S2 Pulses: PRESENT: normal radial pulses GI/Abdominal exam: PRESENT: soft Rectal exam: PRESENT: deferred Neurological exam: PRESENT: alert, awake, oriented to person, oriented to place, oriented to time, oriented to situation Psychiatric exam: PRESENT: anxious, appropriate affect Skin exam: PRESENT: dry, intact, normal color Results Laboratory Results: 04/25/20 05:20 04/25/20 05:20 04/25/20 04/25/20 04/25/20 05:20 05:20 05:20 WBC 8.9 RBC 3.62 L Hgb 10.7 L Hct 32.7 L MCV 90 MCH 29.5 MCHC 32.6 RDW 18.7 H Plt Count 256 Sodium 137.4 Potassium 4.0 Chloride 103 Carbon Dioxide 30 Anion Gap 5 BUN 18 Creatinine 0.78 Est GFR ( Amer) > 60 Glucose 96 Calcium 8.8 Phosphorus 3.5 Magnesium 2.0 TSH 1.99 04/24/20 04/24/20 04/24/20 09:30 09:30 11:20 Creatine Kinase Cancelled Troponin I Cancelled 0.048 04/24/20 11:20 Creatine Kinase 398 H Troponin I EKG Comments: Chest x-ray 04/24/2020 Cardiomegaly no acute findings Twelve-lead EKG 04/24/2020. Independently viewed by me. Sinus rhythm, 91 bpm, left ventricular hypertrophy, QTC is 488 ms, probable PACs Twelve-lead EKG 04/25/2020 Sinus rhythm, 75 bpm, PAC, first-degree AV block, left anterior fascicular block, QTC 505 ms. Potassium 4 mEq/mL (04/25/2020) Magnesium 2 mg/dL Impressions: Chest X-Ray 04/24/20 09:27 IMPRESSION: Cardiomegaly. No acute findings. Assessment & Plan - Diagnosis (1) Atrial fibrillation Qualifiers: Atrial fibrillation type: persistent (not longstanding) Qualified Code(s): I48.19 - Other persistent atrial fibrillation; I48.1 - Persistent atrial fibrillation Is this a current diagnosis for this admission?: Yes Plan: Probably patient is symptomatic on account of breakthrough episodes of atrial fibrillation Patient has been maintained on rhythm control strategy with sotalol 80 mg twice daily for a long period of time. It would be reasonable to uptitrate the s otalol ever so slightly to 120 mg twice daily However caution is necessary as the patient is on Plaquenil as well as Cymbalta which are also potentially medications that can impact the QT interval Would recommend watching the QT interval very closely after each sotalol dose for the next 48 hours. I would prefer either leaving the dose unchanged or may be used 120 mg in the morning and 80 mg in the evening so as to have minimal impact on the QT interval. 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
[2020-04-25] MEDS ORDERED: SOTALOL HCL 80 MG TABLET PO SCH (18:00)
[2020-04-25] MEDS: MAGNESIUM OXIDE 400 MG TABLET PO SCH (21:18)
[2020-04-25] MEDS: RIVAROXABAN 10 MG TABLET PO SCH (21:18)
[2020-04-26] MEDS ORDERED: SOTALOL HCL 80 MG TABLET PO SCH (08:00)
[2020-04-26] MEDS: SUCRALFATE 1 GM TABLET PO SCH ×4 (08:22→21:07)
[2020-04-26] MEDS: PRENATAL VITAMIN W DHA CAPSULE PO SCH (09:18)
[2020-04-26] MEDS: LOSARTAN POTASSIUM 50 MG TABLET PO SCH (09:19)
[2020-04-26] MEDS: FLUTICASONE/VILANTEROL 200-25 MCG/DOSE IH SCH (09:19)
[2020-04-26] MEDS: FOLIC ACID 1 MG TABLET PO SCH ×2 (09:19→17:04)
[2020-04-26] MEDS: PANTOPRAZOLE SODIUM 40 MG TABLET.DR PO SCH (09:19)
[2020-04-26] MEDS: POTASSIUM CHLORIDE 20 MEQ PACKET PO SCH (09:19)
[2020-04-26] MEDS: CETIRIZINE 10 MG TABLET PO SCH (09:19)
[2020-04-26] MEDS: DOCUSATE SODIUM 100 MG CAPSULE PO SCH (09:19)
[2020-04-26] MEDS: CELECOXIB 200 MG CAPSULE PO SCH (09:20)
[2020-04-26] MEDS: COLESTIPOL HCL 1 GM TABLET PO SCH (09:20)
[2020-04-26] MEDS: PREDNISONE 5 MG TABLET PO SCH ×2 (09:20→17:04)
[2020-04-26] MEDS: HYDROXYCHLOROQUINE SULFATE 200 MG TABLET PO SCH (09:21)
[2020-04-26] MEDS: HYDROCHLOROTHIAZIDE 12.5 MG TABLET PO SCH (09:21)
[2020-04-26] MEDS: METOPROLOL TARTRATE 25 MG TABLET PO SCH ×2 (10:07→21:07)
[2020-04-26] MEDS: SOTALOL HCL 80 MG TABLET PO SCH ×2 (10:07→17:04)
--- NOTE | 2020-04-26 14:11 | PDOC PROGRESS REPORT ---
Subjective Progress Note for:: 04/26/20 Subjective:: Patient was seen on morning rounds. She is found up to the chair, comfortably, on room air. Continues to have intermittent palpitations, but less frequent/strong. No further episodes of dyspnea, generalized weakness, or anxiety. Frustrated that we must decrease Sotalol dose; feels like we haven't accomplished anything and is anxious about being discharged. She further denies fever, chest pain, orthopnea, cough, abdominal pain, nausea vomiting and diarrhea. No other questions or concerns at this time. No concerns per nursing. Reason For Visit: A. FIB, ACUTE RESPIRATORY FAILURE WITH HYPOXIA AND Physical Exam Vital Signs: Temp Pulse Resp BP Pulse Ox 98.1 F 66 16 165/75 H 92 04/26/20 10:57 04/26/20 10:57 04/26/20 10:57 04/26/20 10:57 04/26/20 10:57 Intake & Output 04/25/20 04/26/20 04/27/20 06:59 06:59 06:59 Intake Total 2000 580 Output Total 400 Balance 1600 580 Weight 76.6 kg 76.6 kg General appearance: PRESENT: no acute distress, cooperative, well-developed, well-nourished Head exam: PRESENT: atraumatic, normocephalic Eye exam: PRESENT: conjunctiva pink, EOMI, PERRLA. ABSENT: scleral icterus Mouth exam: PRESENT: moist, tongue midline Respiratory exam: PRESENT: clear to auscultation colleen, symmetrical, unlabored. ABSENT: rales, rhonchi, wheezes Cardiovascular exam: PRESENT: RRR - currently NSR, other - intermittent PAF on telemetry. ABSENT: diastolic murmur, rubs, systolic murmur Pulses: PRESENT: normal dorsalis pedis pul Vascular exam: PRESENT: normal capillary refill Extremities exam: PRESENT: full ROM. ABSENT: calf tenderness, clubbing, pedal edema Neurological exam: PRESENT: alert, awake, oriented to person, oriented to place, oriented to time, oriented to situation, CN II-XII grossly intact. ABSENT: motor sensory deficit Psychiatric exam: PRESENT: appropriate affect, normal mood. ABSENT: homicidal ideation, suicidal ideation Skin exam: PRESENT: dry, intact, warm. ABSENT: cyanosis, rash Results Laboratory Results: 04/25/20 05:20 04/25/20 05:20 04/24/20 04/24/20 04/24/20 09:30 09:30 11:20 Creatine Kinase Cancelled Troponin I Cancelled 0.048 04/24/20 11:20 Creatine Kinase 398 H Troponin I Impressions: Chest X-Ray 04/24/20 09:27 IMPRESSION: Cardiomegaly. No acute findings. Assessment and Plan - Diagnosis (1) Atrial fibrillation Qualifiers: Atrial fibrillation type: persistent (not longstanding) Qualified Code(s): I48.19 - Other persistent atrial fibrillation; I48.1 - Persistent atrial fibrillation Is this a current diagnosis for this admission?: Yes Plan: QT interval has increased. Persistent atrial fibrillation. Patient is admitted to the medical floor on continuous cardiac telemetry. Continue Xarelto. Return to Sotalol 80 mg BID. Holding Cymbalta r/t qt interval. Trial metoprolol 12.5 mg bid Cardiology is consulted; appreciate Dr. Ramirez's assistance. (2) Acute respiratory failure with hypoxia and hypercapnia Is this a current diagnosis for this admission?: Yes Plan: Resolved. Symptoms of dyspnea coincided with report of palpitations; I question if the patient is having episodes of a. fib RVR. ABG showed respiratory acidosis with hypercapnia. She denies formal diagnosis of COPD, however, previously prescribed Breo and Cymbalta. Chest x-ray is benign. She will be monitored on continuous cardiac telemetry. Resume Breo and Spiriva. As needed nebulizer treatments. Supplemental oxygen as needed to meet saturations greater than 89%. Continue home dose prednisone 5 mg twice daily; consider escalation if the patient develops wheezing or clear exacerbation of COPD. (3) Rheumatoid arthritis Qualifiers: Rheumatoid arthritis location: multiple sites Rheumatoid factor presence: unspecified presence Qualified Code(s): M06.9 - Rheumatoid arthritis, unspecified Is this a current diagnosis for this admission?: Yes Plan: Continue home dose Plaquenil, prednisone, Celebrex. Holding Cymbalta r/t QT interval; patient adamantly wishes to resume medication at discharge. (4) GERD (gastroesophageal reflux disease) Is this a current diagnosis for this admission?: Yes Plan: Continue PPI and Carafate (5) Hypertension Is this a current diagnosis for this admission?: Yes Plan: Sotalol and metoprolol as above. Continue home dose telmisartan/hydrochlorothiazide. Cardiac diet. (6) Long QT interval Is this a current diagnosis for this admission?: Yes Plan: Returned to Sotalol 80 mg BID Hold Cymbalta Trend EKGs - Time Time Spent with patient: 35 or more minutes Medications reviewed and adjusted accordingly: Yes Anticipated Discharge Disposition: Home with Home Health Anticipated Discharge Timeframe: within 24 hours
--- NOTE | 2020-04-26 16:01 | PDOC PROGRESS REPORT ---
Subjective Progress Note for:: 04/26/20 Subjective:: Maintaining sinus rhythm. No symptoms reported. Feels better. No palpitations Reason For Visit: ATRIAL FIBRILLATION Physical Exam Vital Signs: Temp Pulse Resp BP Pulse Ox 98.1 F 76 16 165/75 H 92 04/26/20 10:57 04/26/20 14:00 04/26/20 10:57 04/26/20 10:57 04/26/20 10:57 Intake & Output 04/25/20 04/26/20 04/27/20 06:59 06:59 06:59 Intake Total 2000 580 Output Total 400 Balance 1600 580 Weight 76.6 kg 76.6 kg General appearance: PRESENT: no acute distress, cooperative, well-developed, well-nourished Head exam: PRESENT: atraumatic, normocephalic Eye exam: PRESENT: conjunctiva pink Ear exam: PRESENT: normal external ear exam Mouth exam: PRESENT: moist Respiratory exam: PRESENT: symmetrical, unlabored Cardiovascular exam: PRESENT: RRR, +S1, +S2 GI/Abdominal exam: PRESENT: soft Neurological exam: PRESENT: alert, awake, oriented to person, oriented to place, oriented to time, oriented to situation - Reports somebody but it showed Psychiatric exam: PRESENT: appropriate affect Skin exam: PRESENT: dry, intact, normal color Results Laboratory Results: 04/25/20 05:20 04/25/20 05:20 04/24/20 04/24/20 04/24/20 09:30 09:30 11:20 Creatine Kinase Cancelled Troponin I Cancelled 0.048 04/24/20 11:20 Creatine Kinase 398 H Troponin I EKG Comments: Sinus rhythm with PAC Twelve-lead EKG 04/25/2020-1803 Sinus rhythm with PACs first-degree AV block, QTC is prolonged at 540 ms. Twelve-lead EKG 04/26/2020 6:31 AM Sinus rhythm with PACs,Left ventricular hypertrophy, QTC is mildly prolonged at 511 ms Impressions: Chest X-Ray 04/24/20 09:27 IMPRESSION: Cardiomegaly. No acute findings. Assessment & Plan - Diagnosis (1) Atrial fibrillation Qualifiers: Atrial fibrillation type: persistent (not longstanding) Qualified Code(s): I48.19 - Other persistent atrial fibrillation; I48.1 - Persistent atrial fibrillation Is this a current diagnosis for this admission?: Yes Plan: Presently maintaining sinus rhythm Sotalol dose was mildly increased to 120 mg twice daily. Patient did receive a dose but that has resulted in prolongation of the QTC. Note is made of the fact that the patient is on Cymbalta as well as Plaquenil-which can probably QTC in the right. Under the circumstances I feel strongly that increasing the dose of sotalol would not be a safe option. I think it may be reasonable to back to sotalol down to 80 mg twice daily and add low-dose beta-marta to suppress triggers for atrial fibrillation.
--- NOTE | 2020-04-26 16:42 | EKG REPORT ---
SEVERITY:- ABNORMAL ECG - SINUS RHYTHM FIRST DEGREE AV BLOCK LVH WITH IVCD, LAD AND SECONDARY REPOL ABNRM PROBABLE INFERIOR INFARCT, AGE INDETERMINATE : Confirmed by: Chad Ramirez MD 26-Apr-2020 16:41:33
--- NOTE | 2020-04-26 16:42 | EKG REPORT ---
SEVERITY:- ABNORMAL ECG - SINUS RHYTHM NONSPECIFIC IVCD WITH LAD LVH WITH SECONDARY REPOLARIZATION ABNORMALITY CONSIDER ANTERIOR INFARCT PAC : Confirmed by: Chad Ramirez MD 26-Apr-2020 16:41:23
[2020-04-26] MEDS: RIVAROXABAN 10 MG TABLET PO SCH (21:08)
[2020-04-26] MEDS: MAGNESIUM OXIDE 400 MG TABLET PO SCH (21:08)
[2020-04-27] MEDS: ACETAMINOPHEN 325 MG TABLET PO PRN (02:35)
[2020-04-27] MEDS ORDERED: MELATONIN 5 MG TABLET PO ONE (03:00)
[2020-04-27] MEDS ORDERED: MAGNESIUM SULFATE/D5W 1 GM/100 ML RTUPB IV ONE ×2 (07:56→12:00)
[2020-04-27] MEDS ORDERED: SOTALOL HCL 80 MG TABLET PO SCH (08:00)
[2020-04-27] MEDS: SUCRALFATE 1 GM TABLET PO SCH ×4 (08:00→21:44)
--- NOTE | 2020-04-27 08:23 | EKG REPORT ---
SEVERITY:- ABNORMAL ECG - SINUS RHYTHM ATRIAL PREMATURE COMPLEX FIRST DEGREE AV BLOCK LVH WITH IVCD, LAD AND SECONDARY REPOL ABNRM PROBABLE INFERIOR INFARCT, AGE INDETERMINATE PROLONGED QTC : Confirmed by: Chad Ramirez MD 27-Apr-2020 08:22:35
[2020-04-27] MEDS: LOSARTAN POTASSIUM 50 MG TABLET PO SCH (11:31)
[2020-04-27] MEDS: POTASSIUM CHLORIDE 20 MEQ PACKET PO SCH (11:31)
[2020-04-27] MEDS: PRENATAL VITAMIN W DHA CAPSULE PO SCH (11:31)
[2020-04-27] MEDS: CETIRIZINE 10 MG TABLET PO SCH (11:31)
[2020-04-27] MEDS: METOPROLOL TARTRATE 25 MG TABLET PO SCH ×2 (11:32→21:44)
[2020-04-27] MEDS: HYDROCHLOROTHIAZIDE 12.5 MG TABLET PO SCH (11:32)
[2020-04-27] MEDS: FOLIC ACID 1 MG TABLET PO SCH ×2 (11:32→18:00)
[2020-04-27] MEDS: PANTOPRAZOLE SODIUM 40 MG TABLET.DR PO SCH (11:33)
[2020-04-27] MEDS: DOCUSATE SODIUM 100 MG CAPSULE PO SCH (11:33)
[2020-04-27] MEDS: CELECOXIB 200 MG CAPSULE PO SCH (11:34)
[2020-04-27] MEDS: HYDROXYCHLOROQUINE SULFATE 200 MG TABLET PO SCH (11:34)
[2020-04-27] MEDS: COLESTIPOL HCL 1 GM TABLET PO SCH (11:35)
[2020-04-27] MEDS: SOTALOL HCL 80 MG TABLET PO SCH (11:37)
[2020-04-27] MEDS: FLUTICASONE/VILANTEROL 200-25 MCG/DOSE IH SCH (11:37)
[2020-04-27] MEDS: PREDNISONE 5 MG TABLET PO SCH ×2 (11:38→18:01)
[2020-04-27] MEDS: ALPRAZOLAM 0.25 MG TABLET PO PRN (13:02)
[2020-04-27] MEDS ORDERED: HYDRALAZINE HCL 10 MG TABLET PO PRN (15:51)
--- NOTE | 2020-04-27 16:10 | PDOC PROGRESS REPORT ---
Subjective Progress Note for:: 04/27/20 Subjective:: Patient was seen on morning rounds. She is found resting in bedr, comfortably, on room air. Continues to have intermittent palpitations, but less frequent/strong. No further episodes of dyspnea are generalized weakness. Very anxious and annoyed that her medications continue to be adjusted w/o first discussing recommended changes. Long discussion had with need to adjust medications as her BP and EKG determine throughout the day, that nursing will not provide a medication that either myself or Dr. Ramirez has specifically ordered and that she will be updated daily but there may be occasions that changes needed to be made prior to her providers having a chance to speak with her. Otherwise, she has no questions or concerns at this time. She further denies fever, chest pain, orthopnea, cough, abdominal pain, nausea vomiting and diarrhea. No concerns per nursing. Reason For Visit: ATRIAL FIBRILLATION Physical Exam Vital Signs: Temp Pulse Resp BP Pulse Ox 97.4 F 65 19 187/84 H 100 04/27/20 11:45 04/27/20 11:45 04/27/20 11:45 04/27/20 11:45 04/27/20 11:45 Intake & Output 04/26/20 04/27/20 04/28/20 06:59 06:59 06:59 Intake Total 580 620 220 Balance 580 620 220 Weight 76.6 kg 77.4 kg General appearance: PRESENT: no acute distress, well-developed, well-nourished Head exam: PRESENT: atraumatic, normocephalic Eye exam: PRESENT: conjunctiva pink, EOMI, PERRLA. ABSENT: scleral icterus Mouth exam: PRESENT: moist, tongue midline Respiratory exam: PRESENT: clear to auscultation colleen, symmetrical, unlabored. ABSENT: rales, rhonchi, wheezes Cardiovascular exam: PRESENT: irregular rhythm, +S1, +S2. ABSENT: diastolic murmur, rubs, systolic murmur Pulses: PRESENT: normal dorsalis pedis pul Vascular exam: PRESENT: normal capillary refill Extremities exam: PRESENT: full ROM. ABSENT: calf tenderness, clubbing, pedal edema Neurological exam: PRESENT: alert, awake, oriented to person, oriented to place, oriented to time, oriented to situation, CN II-XII grossly intact. ABSENT: motor sensory deficit Psychiatric exam: PRESENT: agitated, anxious. ABSENT: homicidal ideation, suicidal ideation Skin exam: PRESENT: dry, intact, warm. ABSENT: cyanosis, rash Results Laboratory Results: 04/25/20 05:20 04/25/20 05:20 04/24/20 04/24/20 04/24/20 09:30 09:30 11:20 Creatine Kinase Cancelled Troponin I Cancelled 0.048 04/24/20 11:20 Creatine Kinase 398 H Troponin I Impressions: Chest X-Ray 04/24/20 09:27 IMPRESSION: Cardiomegaly. No acute findings. Assessment and Plan - Diagnosis (1) Atrial fibrillation Qualifiers: Atrial fibrillation type: persistent (not longstanding) Qualified Code(s): I48.19 - Other persistent atrial fibrillation; I48.1 - Persistent atrial fibrillation Is this a current diagnosis for this admission?: Yes Plan: QT interval has increased. Persistent atrial fibrillation. Short periods of NSR Patient is admitted to the medical floor on continuous cardiac telemetry. Continue Xarelto. Holding Sotalol 80 mg BID r/t qt interval >500 Holding Cymbalta r/t qt interval. Increased metoprolol 25 mg bid Cardiology is consulted; appreciate Dr. Ramirez's assistance. (2) Acute respiratory failure with hypoxia and hypercapnia Is this a current diagnosis for this admission?: Yes Plan: Resolved. Symptoms of dyspnea coincided with report of palpitations; I question if the patient is having episodes of a. fib RVR. ABG showed respiratory acidosis with hypercapnia. She denies formal diagnosis of COPD, however, previously prescribed Breo and Cymbalta. Chest x-ray is benign. She will be monitored on continuous cardiac telemetry. Resume Breo and Spiriva. As needed nebulizer treatments. Supplemental oxygen as needed to meet saturations greater than 89%. Continue home dose prednisone 5 mg twice daily; consider escalation if the patient develops wheezing or clear exacerbation of COPD. (3) Rheumatoid arthritis Qualifiers: Rheumatoid arthritis location: multiple sites Rheumatoid factor presence: unspecified presence Qualified Code(s): M06.9 - Rheumatoid arthritis, unspecified Is this a current diagnosis for this admission?: Yes Plan: Continue home dose Plaquenil, prednisone, Celebrex. Holding Cymbalta r/t QT interval; patient adamantly wishes to resume medication at discharge. (4) GERD (gastroesophageal reflux disease) Is this a current diagnosis for this admission?: Yes Plan: Continue PPI and Carafate (5) Hypertension Is this a current diagnosis for this admission?: Yes Plan: Sotalol and metoprolol as above. Continue home dose telmisartan/hydrochlorothiazide. prn PO Hydralazine Cardiac diet. (6) Long QT interval Is this a current diagnosis for this admission?: Yes Plan: Holding Sotalol Hold Cymbalta IV Magnesium 1 gm today Trend EKGs - Time Time Spent with patient: 25-34 minutes Medications reviewed and adjusted accordingly: Yes Anticipated Discharge Disposition: Home with Home Health Anticipated Discharge Timeframe: within 24 hours
[2020-04-27] MEDS: MAGNESIUM OXIDE 400 MG TABLET PO SCH (21:43)
[2020-04-27] MEDS: RIVAROXABAN 10 MG TABLET PO SCH (21:43)
--- NOTE | 2020-04-27 23:25 | EKG REPORT ---
SEVERITY:- ABNORMAL ECG - SINUS RHYTHM FIRST DEGREE AV BLOCK IVCD, CONSIDER ATYPICAL RBBB LVH WITH IVCD, LAD AND SECONDARY REPOL ABNRM : Confirmed by: Chad Ramirez MD 27-Apr-2020 23:24:26
--- NOTE | 2020-04-27 23:25 | EKG REPORT ---
SEVERITY:- ABNORMAL ECG - SINUS RHYTHM PROLONGED QTC ATRIAL PREMATURE COMPLEX FIRST DEGREE AV BLOCK LEFT BUNDLE BRANCH BLOCK : Confirmed by: Chad Ramirez MD 27-Apr-2020 23:25:12
[2020-04-28] MEDS: ACETAMINOPHEN 325 MG TABLET PO PRN (04:52)
[2020-04-28 05:37] LABS: ANION GAP 7 (5-19); BLOOD UREA NITROGEN 17 mg/dL (7-20); CARBON DIOXIDE 34 mmol/L (22-30); CHLORIDE 101 mmol/L (98-107); GLUCOSE 97 mg/dL (75-110); POTASSIUM 3.6 mmol/L (3.6-5.0)
[2020-04-28] MEDS: SUCRALFATE 1 GM TABLET PO SCH ×4 (07:44→21:13)
[2020-04-28] MEDS: HYDROCHLOROTHIAZIDE 12.5 MG TABLET PO SCH (09:12)
[2020-04-28] MEDS: DOCUSATE SODIUM 100 MG CAPSULE PO SCH (09:13)
[2020-04-28] MEDS: CETIRIZINE 10 MG TABLET PO SCH (09:13)
[2020-04-28] MEDS: PRENATAL VITAMIN W DHA CAPSULE PO SCH (09:13)
[2020-04-28] MEDS: FLUTICASONE/VILANTEROL 200-25 MCG/DOSE IH SCH (09:13)
[2020-04-28] MEDS: FOLIC ACID 1 MG TABLET PO SCH ×2 (09:13→18:37)
[2020-04-28] MEDS: LOSARTAN POTASSIUM 50 MG TABLET PO SCH (09:14)
[2020-04-28] MEDS: METOPROLOL TARTRATE 25 MG TABLET PO SCH ×2 (09:14→21:13)
[2020-04-28] MEDS: PANTOPRAZOLE SODIUM 40 MG TABLET.DR PO SCH (09:14)
[2020-04-28] MEDS: POTASSIUM CHLORIDE 20 MEQ PACKET PO SCH (09:15)
[2020-04-28] MEDS: CELECOXIB 200 MG CAPSULE PO SCH (09:16)
[2020-04-28] MEDS: PREDNISONE 5 MG TABLET PO SCH ×2 (09:16→18:37)
[2020-04-28] MEDS: HYDROXYCHLOROQUINE SULFATE 200 MG TABLET PO SCH (09:17)
[2020-04-28] MEDS: COLESTIPOL HCL 1 GM TABLET PO SCH (09:17)
[2020-04-28] MEDS: AMLODIPINE BESYLATE 5 MG TABLET PO SCH (11:15)
--- NOTE | 2020-04-28 16:26 | PDOC PROGRESS REPORT ---
Subjective Progress Note for:: 04/28/20 Subjective:: Patient was seen on morning rounds. She is found resting in bed, comfortably, on room air. Reports continued palpitations over night but without dyspnea, diaphoresis, anxiety. She has no questions or concerns at this time. She further denies fever, chest pain, orthopnea, cough, abdominal pain, nausea vomiting and diarrhea. No concerns per nursing. Reason For Visit: ATRIAL FIBRILLATION Physical Exam Vital Signs: Temp Pulse Resp BP Pulse Ox 97.8 F 63 18 139/74 H 95 04/28/20 11:59 04/28/20 14:00 04/28/20 11:59 04/28/20 11:59 04/28/20 11:59 Intake & Output 04/27/20 04/28/20 04/29/20 06:59 06:59 06:59 Intake Total 620 910 450 Balance 620 910 450 Weight 77.4 kg 77 kg General appearance: PRESENT: no acute distress, well-developed, well-nourished Head exam: PRESENT: atraumatic, normocephalic Eye exam: PRESENT: conjunctiva pink, EOMI, PERRLA. ABSENT: scleral icterus Mouth exam: PRESENT: moist, tongue midline Respiratory exam: PRESENT: clear to auscultation colleen, symmetrical, unlabored. ABSENT: rales, rhonchi, wheezes Cardiovascular exam: PRESENT: irregular rhythm, +S1, +S2. ABSENT: diastolic murmur, rubs, systolic murmur Pulses: PRESENT: normal dorsalis pedis pul Vascular exam: PRESENT: normal capillary refill Extremities exam: PRESENT: full ROM. ABSENT: calf tenderness, clubbing, pedal edema Musculoskeletal exam: PRESENT: ambulatory Neurological exam: PRESENT: alert, awake, oriented to person, oriented to place, oriented to time, oriented to situation, CN II-XII grossly intact. ABSENT: motor sensory deficit Psychiatric exam: PRESENT: anxious, appropriate affect. ABSENT: homicidal ideation, suicidal ideation Skin exam: PRESENT: dry, intact, warm. ABSENT: cyanosis, rash Results Laboratory Results: 04/25/20 05:20 04/28/20 04:36 04/28/20 04:36 Sodium 141.5 Potassium 3.6 Chloride 101 Carbon Dioxide 34 H Anion Gap 7 BUN 17 Creatinine 0.76 Est GFR ( Amer) > 60 Glucose 97 Calcium 10.0 Magnesium 2.3 04/24/20 04/24/20 04/24/20 09:30 09:30 11:20 Creatine Kinase Cancelled Troponin I Cancelled 0.048 04/24/20 11:20 Creatine Kinase 398 H Troponin I Impressions: Chest X-Ray 04/24/20 09:27 IMPRESSION: Cardiomegaly. No acute findings. Assessment and Plan - Diagnosis (1) Atrial fibrillation Qualifiers: Atrial fibrillation type: persistent (not longstanding) Qualified Code(s): I48.19 - Other persistent atrial fibrillation; I48.1 - Persistent atrial fibrillation Is this a current diagnosis for this admission?: Yes Plan: QT interval remains elevated; slightly decreased on AM EKG NSR w/ PAF Patient w/ persistent A. fib Patient is admitted to the medical floor on continuous cardiac telemetry. Continue Xarelto. Holding Sotalol 80 mg BID r/t qt interval >500 Holding Cymbalta r/t qt interval. Continue metoprolol 25 mg bid Cardiology is consulted; appreciate Dr. Ramirez's assistance. (2) Acute respiratory failure with hypoxia and hypercapnia Is this a current diagnosis for this admission?: Yes Plan: Resolved. Symptoms of dyspnea coincided with report of palpitations; I question if the patient is having episodes of a. fib RVR. ABG showed respiratory acidosis with hypercapnia. She denies formal diagnosis of COPD, however, previously prescribed Breo and Cymbalta. Chest x-ray is benign. She will be monitored on continuous cardiac telemetry. Resume Breo and Spiriva. As needed nebulizer treatments. Supplemental oxygen as needed to meet saturations greater than 89%. Continue home dose prednisone 5 mg twice daily; consider escalation if the patient develops wheezing or clear exacerbation of COPD. (3) Rheumatoid arthritis Qualifiers: Rheumatoid arthritis location: multiple sites Rheumatoid factor presence: unspecified presence Qualified Code(s): M06.9 - Rheumatoid arthritis, unspecified Is this a current diagnosis for this admission?: Yes Plan: Continue home dose Plaquenil, prednisone, Celebrex. Holding Cymbalta r/t QT interval; patient adamantly wishes to resume medication at discharge. (4) GERD (gastroesophageal reflux disease) Is this a current diagnosis for this admission?: Yes Plan: Continue PPI and Carafate (5) Hypertension Is this a current diagnosis for this admission?: Yes Plan: Sotalol and metoprolol as above. Continue home dose telmisartan/hydrochlorothiazide. prn PO Hydralazine Cardiac diet. (6) Long QT interval Is this a current diagnosis for this admission?: Yes Plan: Holding Sotalol Hold Cymbalta IV Magnesium 1 gm yesterday Check EKG in AM Discussed w/ Dr. Ramirez. - Time Time Spent with patient: 25-34 minutes Medications reviewed and adjusted accordingly: Yes Anticipated Discharge Disposition: Home, Self Care Anticipated Discharge Timeframe: within 48 hours
--- NOTE | 2020-04-28 20:15 | EKG REPORT ---
SEVERITY:- ABNORMAL ECG - SINUS ARRHYTHMIA WITH FIRST DEGREE AV BLOCK PROLONGED QTC LVH WITH IVCD, LAD AND SECONDARY REPOL ABNRM : Confirmed by: Chad Ramirez MD 28-Apr-2020 20:15:22
[2020-04-28] MEDS: ALPRAZOLAM 0.25 MG TABLET PO PRN (21:13)
[2020-04-28] MEDS: RIVAROXABAN 10 MG TABLET PO SCH (21:13)
[2020-04-28] MEDS: MAGNESIUM OXIDE 400 MG TABLET PO SCH (21:13)
[2020-04-29] MEDS: ACETAMINOPHEN 325 MG TABLET PO PRN (06:05)
[2020-04-29] MEDS: SUCRALFATE 1 GM TABLET PO SCH ×2 (07:48→12:46)
[2020-04-29] MEDS: FLUTICASONE/VILANTEROL 200-25 MCG/DOSE IH SCH (09:02)
[2020-04-29] MEDS: COLESTIPOL HCL 1 GM TABLET PO SCH (09:04)
[2020-04-29] MEDS: CELECOXIB 200 MG CAPSULE PO SCH (09:04)
[2020-04-29] MEDS: PANTOPRAZOLE SODIUM 40 MG TABLET.DR PO SCH (09:04)
[2020-04-29] MEDS: CETIRIZINE 10 MG TABLET PO SCH (09:05)
[2020-04-29] MEDS: DOCUSATE SODIUM 100 MG CAPSULE PO SCH (09:05)
[2020-04-29] MEDS: LOSARTAN POTASSIUM 50 MG TABLET PO SCH (09:05)
[2020-04-29] MEDS: HYDROCHLOROTHIAZIDE 12.5 MG TABLET PO SCH (09:05)
[2020-04-29] MEDS: METOPROLOL TARTRATE 25 MG TABLET PO SCH (09:05)
[2020-04-29] MEDS: AMLODIPINE BESYLATE 5 MG TABLET PO SCH (09:05)
[2020-04-29] MEDS: FOLIC ACID 1 MG TABLET PO SCH (09:06)
[2020-04-29] MEDS: PREDNISONE 5 MG TABLET PO SCH (09:06)
[2020-04-29] MEDS: PRENATAL VITAMIN W DHA CAPSULE PO SCH (09:06)
[2020-04-29] MEDS: POTASSIUM CHLORIDE 20 MEQ PACKET PO SCH (09:06)
--- NOTE | 2020-04-29 09:40 | PDOC PROGRESS REPORT ---
Subjective Progress Note for:: 04/28/20 Subjective:: Maintaining sinus rhythm. No symptoms reported. Feels better. No palpitations Reason For Visit: ATRIAL FIBRILLATION Physical Exam Vital Signs: Temp Pulse Resp BP Pulse Ox 98.0 F 74 19 163/82 H 96 04/28/20 16:18 04/28/20 19:00 04/28/20 16:18 04/28/20 16:18 04/28/20 16:18 Intake & Output 04/27/20 04/28/20 04/29/20 06:59 06:59 06:59 Intake Total 620 910 650 Balance 620 910 650 Weight 77.4 kg 77 kg General appearance: PRESENT: no acute distress, cooperative, well-developed, well-nourished Head exam: PRESENT: atraumatic, normocephalic Eye exam: PRESENT: conjunctiva pink Mouth exam: PRESENT: moist Respiratory exam: PRESENT: clear to auscultation colleen, symmetrical Cardiovascular exam: PRESENT: RRR, +S1, +S2 Pulses: PRESENT: normal radial pulses GI/Abdominal exam: PRESENT: soft Rectal exam: PRESENT: deferred Neurological exam: PRESENT: alert, awake, oriented to person, oriented to place, oriented to time, oriented to situation Psychiatric exam: PRESENT: appropriate affect Skin exam: PRESENT: dry, intact, normal color Results Laboratory Results: 04/25/20 05:20 04/28/20 04:36 04/28/20 04:36 Sodium 141.5 Potassium 3.6 Chloride 101 Carbon Dioxide 34 H Anion Gap 7 BUN 17 Creatinine 0.76 Est GFR ( Amer) > 60 Glucose 97 Calcium 10.0 Magnesium 2.3 04/24/20 04/24/20 04/24/20 09:30 09:30 11:20 Creatine Kinase Cancelled Troponin I Cancelled 0.048 04/24/20 11:20 Creatine Kinase 398 H Troponin I EKG Comments: Twelve-lead EKG 04/28/2020 10:09 AM Sinus arrhythmia, first-degree AV block, QTC is 516 ms, IVCD, left ventricular hypertrophy Potassium this morning is 3.6 Magnesium is 2.3 Impressions: Chest X-Ray 04/24/20 09:27 IMPRESSION: Cardiomegaly. No acute findings. Assessment & Plan - Diagnosis (1) Atrial fibrillation Qualifiers: Atrial fibrillation type: persistent (not longstanding) Qualified Code(s): I48.19 - Other persistent atrial fibrillation; I48.1 - Persistent atrial fibrillation Is this a current diagnosis for this admission?: Yes Plan: Presently maintaining sinus rhythm Sotalol dose was mildly increased to 120 mg twice daily. Patient did receive a dose but that has resulted in prolongation of the QTC. Note is made of the fact that the patient is on Cymbalta as well as Plaquenil-which can probably QTC in the right. Plaquenil is being continued Cymbalta has been discontinued QTC appears to be decreasing It may be reasonable to reassess the EKG tomorrow morning and if the QTC is below 500 ms to restart her home dose of sotalol at 80 mg twice daily
--- NOTE | 2020-04-29 09:47 | PDOC PROGRESS REPORT ---
Subjective Progress Note for:: 04/29/20 Subjective:: Sitting in chair. Relaxed. No complaints. No chest pain or dyspnea. Reason For Visit: ATRIAL FIBRILLATION Physical Exam Vital Signs: Temp Pulse Resp BP Pulse Ox 97.7 F 64 19 189/91 H 98 04/29/20 08:15 04/29/20 08:15 04/29/20 08:15 04/29/20 08:15 04/29/20 08:15 Intake & Output 04/28/20 04/29/20 04/30/20 06:59 06:59 06:59 Intake Total 910 1360 240 Balance 910 1360 240 Weight 77 kg 76.8 kg General appearance: PRESENT: no acute distress, cooperative, obese, well- developed, well-nourished Head exam: PRESENT: atraumatic, normocephalic Eye exam: PRESENT: conjunctiva pink Mouth exam: PRESENT: moist Respiratory exam: PRESENT: clear to auscultation colleen, symmetrical, unlabored Cardiovascular exam: PRESENT: RRR, +S1, +S2 Pulses: PRESENT: normal radial pulses GI/Abdominal exam: PRESENT: soft Rectal exam: PRESENT: deferred Neurological exam: PRESENT: alert, awake, oriented to person, oriented to place, oriented to time, oriented to situation Psychiatric exam: PRESENT: appropriate affect Skin exam: PRESENT: dry, intact, normal color Results Laboratory Results: 04/25/20 05:20 04/28/20 04:36 04/24/20 04/24/20 04/24/20 09:30 09:30 11:20 Creatine Kinase Cancelled Troponin I Cancelled 0.048 04/24/20 11:20 Creatine Kinase 398 H Troponin I EKG Comments: Twelve-lead EKG 04/29/2020. 8:29 AM Independently reviewed by me. Sinus rhythm, PAC, left ventricular hypertrophy, IVCD, QTC is 484 ms Impressions: Chest X-Ray 04/24/20 09:27 IMPRESSION: Cardiomegaly. No acute findings. Assessment & Plan - Diagnosis (1) Atrial fibrillation Qualifiers: Atrial fibrillation type: persistent (not longstanding) Qualified Code(s): I48.19 - Other persistent atrial fibrillation; I48.1 - Persistent atrial fibrillation Is this a current diagnosis for this admission?: Yes Plan: Presently maintaining sinus rhythm Sotalol dose was mildly increased to 120 mg twice daily. Patient did receive a dose but that has resulted in prolongation of the QTC. Note is made of the fact that the patient is on Cymbalta as well as Plaquenil-which can probably QTC in the right. Plaquenil is being continued Cymbalta has been discontinued QTC is normal on today morning's EKG. We will go and restart sotalol at home dose of 80 mg twice daily. I suspect that should be okay especially since the Cymbalta has been discontinued. She has upcoming appointment later this week with her primary marionette performer. The addition of low-dose beta-marta will help suppress triggers for atrial fibrillation and afford symptom relief. Continue systemic anticoagulation with rivaroxaban 20 mg daily (2) Hypertension Is this a current diagnosis for this admission?: Yes Plan: Systemic hypertension Patient very anxious at least during the initial part of the hospital stay. This may be accounting for elevated blood pressure readings I suspect that she may be okay continuing on her home regimen. We have also added low-dose beta-marta to her regimen. Based on her clinical course and next few blood pressure readings we can decide whether to continue the amlodipine.
[2020-04-29] MEDS ORDERED: SOTALOL HCL 80 MG TABLET PO ONE (10:15)
[2020-04-29 16:14] VITALS: BP 152/87
--- NOTE | 2020-04-29 17:37 | PDOC DISCHARGE SUMMARY ---
Impression - Admit/DC Date/PCP Admission Date/Primary Care Provider: 04/26/20 14:11 SIMONE MEDELLIN DO Discharge Date: 04/29/20 - Discharge Diagnosis (1) Atrial fibrillation Is this a current diagnosis for this admission?: Yes (2) Acute respiratory failure with hypoxia and hypercapnia Is this a current diagnosis for this admission?: Yes (3) Rheumatoid arthritis Is this a current diagnosis for this admission?: Yes (4) GERD (gastroesophageal reflux disease) Is this a current diagnosis for this admission?: Yes (5) Hypertension Is this a current diagnosis for this admission?: Yes (6) Long QT interval Is this a current diagnosis for this admission?: Yes - Additional Information Resuscitation Status: Full Code Discharge Diet: Cardiac Discharge Activity: Activity As Tolerated, Balance Activity w/Rest Referrals: [facility] [Outside] VIC MEDELLIN DO [Primary Care Provider] - 05/08/20 1:30 pm (PATIENT PLEASE WEAR MASK IN OFFICE,AND NO EXTRA VISITORS IN OFFICE) BRITTANY PRESCOTT MD [NO LOCAL MD] - (THE OFFICE IS GOING TO CONTACT THE PATIENT WITH FOLLOW UP APPT) Prescriptions: Metoprolol Tartrate [Lopressor 25 mg Tablet] 25 mg PO Q12 #60 tablet Home Medications: Celecoxib [Celebrex] 400 mg PO DAILY 12/15/13 Cetirizine HCl [Zyrtec] 10 mg PO DAILY 12/15/13 Esomeprazole Magnesium [Nexium] 40 mg PO DAILY 12/15/13 Hydroxychloroquine Sulfate [Plaquenil 200 mg Tablet] 200 mg PO DAILY 12/15/13 Potassium Chloride [Klor-Con] 20 meq PO DAILY 12/15/13 Prednisone 5 mg PO BID 12/15/13 Sucralfate [Carafate 1 gm Tablet] 1 gm PO ACHS 12/15/13 Budesonide/Formoterol Fumarate [Symbicort HFA 160-4.5 mcg Inhaler 6 gm] 1 puff IN Q12 04/24/20 Colestipol HCl [Colestid 1 gm Tablet] 1 gm PO DAILY 04/24/20 Ergocalciferol (Vitamin D2) [Drisdol 50,000 unit (1.25MG) Capsule] 1 cap PO [id number] 04/24/20 Folic Acid [Folvite 1 mg Tablet] 1 mg PO BID 04/24/20 Magnesium Oxide [Mag-Ox 400 mg Tablet] 400 mg PO QHS 04/24/20 Ondansetron [Zofran Odt 4 mg Tablet] 4 mg PO Q6HP PRN 04/24/20 Vits96/Iron Fum/Folic [ Tablet] 1 tab PO DAILY 04/24/20 Rivaroxaban [Xarelto] 20 mg PO DAILY 04/24/20 Sotalol HCl [Betapace 80 mg Tablet] 80 mg PO BID 04/24/20 Telmisartan/Hydrochlorothiazid [Telmisartan-Hctz 80-12.5 mg Tb] 1 tab PO DAILY 04/24/20 Venlafaxine HCl ER [Effexor Xr 75 mg Cap.sr] 75 mg PO DAILY 04/24/20 Acetaminophen [Tylenol 325 mg Tablet] 650 mg PO Q4HP PRN tablet 04/29/20 Metoprolol Tartrate [Lopressor 25 mg Tablet] 25 mg PO Q12 #60 tablet 04/29/20 History of Present Illiness History of Present Illness: ROXANA GOEL is a 74 year old female with a past medical history significant for atrial fibrillation status post cardiac ablation (per patient, found to be in normal sinus rhythm at her cardiology visit just 2 weeks ago), remote esophageal cancer with esophagectomy, pulmonary embolus, hypertension, hyperlipidemia, and rheumatoid arthritis who presented to the emergency department today with a sudden onset of dyspnea. EMS responded and reported that she was dusky in appearance with profound hypoxia (uncertain of initial SPO2); placed on nonrebreather and transported to the emergency department. In the ED, patient was found to be tachypneic with SPO2 100% on nonrebreather; supplemental oxygen was slowly titrated off and she was able to maintain oxygen saturations in the high 80s to low 90s without Respiratory support. Further christian luation found an unremarkable CBC, ABG significant for respiratory acidosis with hypercapnia, chemistry with mild hypokalemia, elevated bicarb, and an indeterminate troponin of 0.048. Urine suggested dehydration and also noted to have proteinuria. EKG with significant for cardiomegaly but without acute findings. EKG shows atrial fibrillation. She was provided IV fluid boluses due to hypotension nebulizer treatment x1 due to continued report of dyspnea, and referred to the hospitalist service for admission and management of the above-stated findings. Hospital Course Hospital Course: (1) Atrial fibrillation QT interval remains elevated; slightly decreased on AM EKG Currently maintaining Sinus rhythm. Patient w/ persistent A. fib Patient was admitted to the medical floor on continuous cardiac telemetry. Continue Xarelto. Resume Sotalol 80 mg BID Continue metoprolol 25 mg bid Cardiology is consulted; appreciate Dr. Ramirez's assistance. Close outpatient cardiology follow up. (2) Acute respiratory failure with hypoxia and hypercapnia Resolved. Symptoms of dyspnea coincided with report of palpitations; I question if the patient is having episodes of a. fib RVR. ABG showed respiratory acidosis with hypercapnia. She denies formal diagnosis of COPD, however, previously prescribed Breo and Cymbalta. Chest x-ray is benign. She will be monitored on continuous cardiac telemetry. Resume Breo and Spiriva. Received supplemental oxygen and nebulizer treatments. (3) Rheumatoid arthritis Continue home dose Plaquenil, prednisone, Celebrex. Holding Cymbalta r/t QT interval; patient adamantly wishes to resume medication. She is advised to continue holding medication until cleared by her sanitation supervisor, Dr. Coreas. (4) GERD (gastroesophageal reflux disease) Continue PPI and Carafate (5) Hypertension Sotalol and metoprolol as above. Continue home dose telmisartan/hydrochlorothiazide. Cardiac diet. (6) Long QT interval Cardiology is consulted; discussed with Dr. Ramirez. Qt interval has tredned back down; 484 this afternoon Resume home dose Sotalol Continue home dose Plaquenil Continue to hold Cymbalta Follow-up with established sanitation supervisor next week as scheduled. Physical Exam Vital Signs: Temp Pulse Resp BP Pulse Ox 98.9 F 60 18 152/87 H 92 04/29/20 16:10 04/29/20 16:10 04/29/20 16:10 04/29/20 16:10 04/29/20 16:10 Intake & Output 04/28/20 04/29/20 04/30/20 06:59 06:59 06:59 Intake Total 910 1360 360 Balance 910 1360 360 Weight 77 kg 76.8 kg General appearance: PRESENT: no acute distress, cooperative, well-developed, well-nourished Head exam: PRESENT: atraumatic, normocephalic Eye exam: PRESENT: conjunctiva pink, EOMI, PERRLA. ABSENT: scleral icterus Mouth exam: PRESENT: moist, tongue midline Respiratory exam: PRESENT: clear to auscultation colleen, symmetrical, unlabored. ABSENT: rales, rhonchi, wheezes Cardiovascular exam: PRESENT: RRR - Sinus rhythm. ABSENT: diastolic murmur, rubs, systolic murmur Pulses: PRESENT: normal dorsalis pedis pul Vascular exam: PRESENT: normal capillary refill Extremities exam: PRESENT: full ROM. ABSENT: calf tenderness, clubbing, pedal edema Musculoskeletal exam: PRESENT: ambulatory Neurological exam: PRESENT: alert, awake, oriented to person, oriented to place, oriented to time, oriented to situation, CN II-XII grossly intact. ABSENT: motor sensory deficit Psychiatric exam: PRESENT: appropriate affect, normal mood. ABSENT: homicidal ideation, suicidal ideation Skin exam: PRESENT: dry, intact, warm. ABSENT: cyanosis, rash Results Laboratory Results: WBC 8.9 10^3/uL (4.0-10.5) 04/25/20 05:20 RBC 3.62 10^6/uL (3.72-5.28) L 04/25/20 05:20 Hgb 10.7 g/dL (12.0-15.5) L 04/25/20 05:20 Hct 32.7 % (36.0-47.0) L 04/25/20 05:20 MCV 90 fl (80-97) 04/25/20 05:20 MCH 29.5 pg (27.0-33.4) 04/25/20 05:20 MCHC 32.6 g/dL (32.0-36.0) 04/25/20 05:20 RDW 18.7 % (11.5-14.0) H 04/25/20 05:20 Plt Count 256 10^3/uL (150-450) 04/25/20 05:20 Lymph % (Auto) 18.6 % (13-45) 04/24/20 09:30 [place] % (Auto) 6.5 % (3-13) 04/24/20 09:30 Eos % (Auto) 4.4 % (0-6) 04/24/20 09:30 Baso % (Auto) 0.9 % (0-2) 04/24/20 09:30 Absolute Neuts (auto) 4.6 10^3/uL (1.7-8.2) 04/24/20 09:30 Absolute Lymphs (auto) 1.2 10^3/uL (0.5-4.7) 04/24/20 09:30 Absolute Monos (auto) 0.4 10^3/uL (0.1-1.4) 04/24/20 09:30 Absolute Eos (auto) 0.3 10^3/uL (0.0-0.6) 04/24/20 09:30 Absolute Basos (auto) 0.1 10^3/uL (0.0-0.2) 04/24/20 09:30 Seg Neutrophils % 69.6 % (42-78) 04/24/20 09:30 Carbonic Acid 2.08 mmol/L (1.05-1.35) H 04/24/20 14:05 HCO3/H2CO3 Ratio 16:1 04/24/20 14:05 ABG pH 7.31 (7.35-7.45) L 04/24/20 14:05 ABG pCO2 69.0 mmHg (35-45) H 04/24/20 14:05 ABG pO2 99.6 mmHg (80-100) 04/24/20 14:05 ABG HCO3 33.6 mmol/L (20-24) H 04/24/20 14:05 ABG Total CO2 35.7 mmol/L (21-25) H 04/24/20 14:05 ABG O2 Saturation 96.7 % (94-98) 04/24/20 14:05 ABG Base Excess 4.9 mmol/L 04/24/20 14:05 FiO2 2L 04/24/20 14:05 Sodium 141.5 mmol/L (137-145) 04/28/20 04:36 Potassium 3.6 mmol/L (3.6-5.0) 04/28/20 04:36 Chloride 101 mmol/L (98-107) 04/28/20 04:36 Carbon Dioxide 34 mmol/L (22-30) H 04/28/20 04:36 Anion Gap 7 (5-19) 04/28/20 04:36 BUN 17 mg/dL (7-20) 04/28/20 04:36 Creatinine 0.76 mg/dL (0.52-1.25) 04/28/20 04:36 Est GFR ( Amer) > 60 (>60) 04/28/20 04:36 Est GFR (Non-Af Amer) Cancelled 04/24/20 09:30 Est GFR (MDRD) Non-Af > 60 (>60) 04/28/20 04:36 Glucose 97 mg/dL (75-110) 04/28/20 04:36 Calcium 10.0 mg/dL (8.4-10.2) 04/28/20 04:36 Phosphorus 3.5 mg/dL (2.5-4.5) 04/25/20 05:20 Magnesium 2.3 mg/dL (1.6-2.3) 04/28/20 04:36 Total Bilirubin 0.3 mg/dL (0.2-1.3) 04/24/20 11:20 Direct Bilirubin 0.0 mg/dL (0.0-0.4) 04/24/20 11:20 Neonat Total Bilirubin Not Reportable 04/24/20 11:20 Neonat Direct Bilirubin Not Reportable 04/24/20 11:20 Neonat Indirect Bili Not Reportable 04/24/20 11:20 AST 54 U/L (14-36) H 04/24/20 11:20 ALT 22 U/L (<35) 04/24/20 11:20 Alkaline Phosphatase 78 U/L (38-126) 04/24/20 11:20 Creatine Kinase 398 U/L (30-135) H 04/24/20 11:20 Troponin I 0.048 ng/mL 04/24/20 11:20 Total Protein 5.5 g/dL (6.3-8.2) L 04/24/20 11:20 Albumin 3.0 g/dL (3.5-5.0) L 04/24/20 11:20 EGFR Cancelled 04/24/20 09:30 TSH 1.99 uIU/mL (0.47-4.68) 04/25/20 05:20 Urine Color YELLOW 04/24/20 12:15 Urine Appearance SLIGHTLY-CLOUDY 04/24/20 12:15 Urine pH 6.0 (5.0-9.0) 04/24/20 12:15 Ur Specific [place] 1.024 04/24/20 12:15 Urine Protein >=500 mg/dL (NEGATIVE) H 04/24/20 12:15 Urine Glucose (UA) NEGATIVE mg/dL (NEGATIVE) 04/24/20 12:15 Urine Ketones NEGATIVE mg/dL (NEGATIVE) 04/24/20 12:15 Urine Blood NEGATIVE (NEGATIVE) 04/24/20 12:15 Urine Nitrite NEGATIVE (NEGATIVE) 04/24/20 12:15 Urine Bilirubin NEGATIVE (NEGATIVE) 04/24/20 12:15 Urine Urobilinogen NEGATIVE mg/dL (<2.0) 04/24/20 12:15 Ur Leukocyte Esterase NEGATIVE (NEGATIVE) 04/24/20 12:15 Urine WBC (Auto) 16 /HPF 04/24/20 12:15 Urine RBC (Auto) 7 /HPF 04/24/20 12:15 U Hyaline Cast (Auto) 4 /LPF 04/24/20 12:15 Squamous Epi Cells Auto <1 /HPF 04/24/20 12:15 Urine Mucus (Auto) RARE /LPF 04/24/20 12:15 Urine Ascorbic Acid NEGATIVE (NEGATIVE) 04/24/20 12:15 04/24/20 04/24/20 09:30 11:20 Troponin I Cancelled 0.048 Impressions: Chest X-Ray 04/24/20 09:27 IMPRESSION: Cardiomegaly. No acute findings. Plan Plan of Treatment: She is discharged home, in stable condition, with home health services. She is advised to follow-up with her primary care provider within 1 week. Follow-up with her established sanitation supervisor, Dr. Coreas, as scheduled this week. Continue home dose of Plaquenil and sotalol but hold Cymbalta until she is seen by Dr. Coreas and cleared to resume this medication. Take other medications as prescribed. Return to the emergency department as needed for concerning symptoms. Time Spent: Greater than 30 Minutes Stroke Is this a Stroke Patient?: No Acute Heart Failure - Is this a Heart Failure Patient?: No
--- NOTE | 2020-04-29 21:37 | EKG REPORT ---
SEVERITY:- ABNORMAL ECG - SINUS RHYTHM FIRST DEGREE AV BLOCK LVH WITH IVCD, LAD AND SECONDARY REPOL ABNRM : Confirmed by: Marylin Schmidt 29-Apr-2020 21:36:56
--- NOTE | 2020-04-29 21:37 | EKG REPORT ---
SEVERITY:- ABNORMAL ECG - SINUS RHYTHM ATRIAL PREMATURE COMPLEX LVH WITH IVCD, LAD AND SECONDARY REPOL ABNRM : Confirmed by: Marylin Schmidt 29-Apr-2020 21:37:12
[2020-04-30] MEDS ORDERED: HYDROCHLOROTHIAZIDE 12.5 MG TABLET PO SCH (10:00)
[2020-05-14] MEDS ORDERED: ERGOCALCIFEROL (VITAMIN D2) 50000 UNIT (1.25 MG) CAPSULE PO SCH (10:00)
== END 2020-04-29 16:52 | disposition home health service (06) | DRG 308 ==
LOC: ER 09:11 → EH 15:38 → INTOOBSV 15:38 → 4W 18:04 → 4N 04-26 13:40 → OBSVTOIN 04-26 14:11
PROVIDERS: ADMIT Internal Medicine; ATTEND Registered Nurse
PROC: 5A09457 Assistance with Respiratory Ventilation, 24-96 Consecutive Hours, Continuous Positive Airway Pressure (ICD-10-PCS; principal; 2020-04-25)
DX: I48.19 Other persistent atrial fibrillation (principal); J96.01 Acute respiratory failure with hypoxia; J96.02 Acute respiratory failure with hypercapnia; C15.9 Malignant neoplasm of esophagus, unspecified; M06.9 Rheumatoid arthritis, unspecified; K21.9 Gastro-esophageal reflux disease without esophagitis; I10 Essential (primary) hypertension; I45.81 Long QT syndrome; E78.5 Hyperlipidemia, unspecified; E86.0 Dehydration; E87.6 Hypokalemia; F32.9 Major depressive disorder, single episode, unspecified; I48.0 Paroxysmal atrial fibrillation; F41.9 Anxiety disorder, unspecified; Z79.899 Other long term (current) drug therapy; Z79.01 Long term (current) use of anticoagulants; Z90.49 Acquired absence of other specified parts of digestive tract; Z86.711 Personal history of pulmonary embolism; Z79.51 Long term (current) use of inhaled steroids; Z88.2 Allergy status to sulfonamides; Z91.041 Radiographic dye allergy status
CPT/HCPCS: 36415; 71045; 80048; 80053; 81001; 82550; 82803; 83735; 84100; 84443; 84484; 85025; 85027; 93005; 93010; 94660; 94667; 94799; 96374; 99285; G0378; J2405; J3475; J3490; J7030; J7512